=== PATIENT | male | born 1960 | race Caucasian/White ===

== ENCOUNTER 2024-07-06 14:52 | Inpatient (IN) | payer OTHER, SELFPAY ==
[2024-07-06] VITALS (18 sets, daily range): BP systolic 72–137; BP diastolic 50–88; PULSE 90–120; RESP 16–24; TEMP 36.2–37.3; O2SAT 94–99; BMI 24.4; BMI 24.0
--- NOTE | 2024-07-06 15:12 | EKG12_ITS ---
Test Reason : SOB Blood Pressure : */* mmHG Vent. Rate : 125 BPM Atrial Rate : 125 BPM P-R Int : 144 ms QRS Dur : 82 ms QT Int : 352 ms P-R-T Axes : -17 -21 19 degrees QTcB Int : 508 ms Sinus tachycardia Otherwise normal ECG Confirmed by Floyd Lewis ([id number]), purchase request editor DON PEREZ ([id number]) on 07/07/2024 11:31:00 AM Referred By: Jonel Mckeon Confirmed By: Floyd Lewis
--- NOTE | 2024-07-06 15:12 | CT_ITS ---
PROCEDURE: BRAIN/HEAD WITHOUT CONTRAST 07/06/2024 REASON FOR EXAM: FALLS AND HEAD INJURY TECHNIQUE: Head CT without intravenous contrast. Coronal and Sagittal reconstruction series were provided. One or more dose reduction techniques were used (e.g., Automated exposure control, adjustment of the mA and/or kV according to patient size, use of iterative reconstruction technique. RADIATION DOSE SUMMARY: CTDlvol: 44.99 mGy DLP: 863.60 mGycm COMPARISON: None FINDINGS: Brain: No intracranial hemorrhage, mass effect, midline shift. Butler-white matter differentiation maintained without CT findings of acute infarct. No cerebral edema or sulcal effacement. CSF Spaces: Normal Sinuses/Mastoids: Clear at visualized levels Bilateral ocular lens replacements. Bones: Depressed anterior nasal bridge fracture. CT/Brain/Head without Contrast IMPRESSION: No acute abnormal intracranial finding. Depressed anterior nasal bridge fracture. Reading [facility]
--- NOTE | 2024-07-06 15:15 | EX.ED.DYSGE1 ---
HPI History of Present Illness Chief Complaint: Shortness of Breath Informant: patient and family (Sister with the patient.) Onset/Context/Timing Onset: Today Context: Gradual Onset Timing: Continuous Current Severity: Mild Maximum Severity: Mild Narrative Narrative: 64-year-old male history of frequent falls. On the fourth of this month he was at [facility] after a fall with pneumothorax and had a chest tube placed on the left. His sister lives down in this area to get discharged to stay with her until she can get him into a correction facility. He does have a history of alcohol abuse. Prior lymphoma. She states that he has had more shortness of breath he has been dizzy lately. And he fell again yesterday. He denies any injury from the falls. He is not on blood thinners. He denies vomiting diarrhea or fever. He denies chest pain or abdominal pain. Prior similar symptoms: Yes Recent Illness/Hospitalization: Yes PFSH PFSH Allergy/AdvReac Type Severity Reaction Status Date / Time No Known Allergies Allergy Verified 07/06/24 14:56 Social History Smoking Status: Light Smoker (<10/day) ROS ROS ED ROS Narrative Patient denies any injury from the falls. Denies any rib pain denies abdominal pain. Denies any vomiting or diarrhea. No fever. No dysuria. He has had dizziness. Constitutional Constitutional ED: Denies chills or fever(s) Eyes Eyes: Denies blurry vision ENT ENT ED: Denies ear pain Cardiovascular Cardiovascular: Denies chest pain, orthopnea or palpitations Respiratory/Chest Respiratory/Chest: Denies cough, dyspnea, dyspnea on exertion or orthopnea Gastrointestinal Gastrointestinal: Denies abdominal pain Genitourinary Genitourinary ED: Denies dysuria or hematuria Musculoskeletal Musculoskeletal: Denies arthralgias Neurologic Neurologic: Denies headache(s) Psychiatric Psychiatric: Denies anxiety or depression Endocrine Endocrinology: Denies cold intolerance Hematologic/Lymphatic Hematologic/Lymphatic: Reports none Allergic/Immunologic Allergic/Immunologic ED: Denies mouth swelling, tongue swelling or urticaria EXAM Physical Exam Narrative Exam Narrative: Elderly male sitting upright in bed. His initial vital signs as first blood pressure 72/50 currently is 99/62. Afebrile. Pulse ox 96% on room air. No hypoxia. No distress. Tolerating hypertension well. Sisters at bedside. H EENT exam pupils round react light. Extra motions are intact. No hematoma. No laceration. Scalp and face are nontender. Moist mucous membranes. Neck nontender no lymphadenopathy. Back and spine nontender no bruising. Lungs clear to auscultation bilaterally. Heart regular rhythm rate about 115 no murmur. Chest wall ribs currently are nontender. No crepitus or subcu air. Abdomen soft nontender. No peritoneal signs. Patient moving all 4 extremities. Calves are nontender without edema or cords. He has equal symmetrical 5/5 radiator cleaner strength. Dorsi plantarflexion intact. He has normal range of motion both upper and lower extremities. Neurologically is awake alert. Answering questions following commands. Patient has a very benign exam. Const Vital Signs: 07/06/24 14:57 07/06/24 15:03 07/06/24 15:22 Temperature 97.2 F L 99.2 F H Temperature Source Oral Oral Pulse Rate 113 H 120 H 110 H Respiratory Rate 24 H 21 H 24 H Respiratory Effort Respiratory Depth Respiratory Pattern Blood Pressure 72/50 L 96/72 86/57 L Blood Pressure Mean 57 80 66 Pulse Ox 96 95 98 Oxygen Delivery Method Room Air Room Air Room Air 07/06/24 15:27 07/06/24 15:34 07/06/24 15:45 Temperature Temperature Source Pulse Rate 90 Respiratory Rate 24 H Respiratory Effort Short of Breath Short of Breath Respiratory Depth Normal Respiratory Pattern Normal Normal Blood Pressure 81/70 L Blood Pressure Mean 77 Pulse Ox Oxygen Delivery Method 07/06/24 15:46 07/06/24 15:51 07/06/24 16:00 Temperature Temperature Source Pulse Rate 98 90 92 Respiratory Rate 20 H 22 H 21 H Respiratory Effort Respiratory Depth Respiratory Pattern Blood Pressure 86/56 L 98/62 Blood Pressure Mean 67 72 Pulse Ox 97 94 96 Oxygen Delivery Method Room Air Room Air 07/06/24 16:00 07/06/24 16:15 07/06/24 16:30 Temperature Temperature Source Pulse Rate 97 96 Respiratory Rate 20 H 22 H Respiratory Effort Respiratory Depth Respiratory Pattern Blood Pressure 98/62 108/61 110/72 Blood Pressure Mean 72 77 84 Pulse Ox 95 95 Oxygen Delivery Method Room Air 07/06/24 16:45 07/06/24 16:45 07/06/24 17:00 Temperature Temperature Source Pulse Rate 94 94 106 H Respiratory Rate 21 H 21 H 23 H Respiratory Effort Respiratory Depth Respiratory Pattern Blood Pressure 101/67 102/70 Blood Pressure Mean 78 82 Pulse Ox 99 Oxygen Delivery Method Room Air 07/06/24 19:00 07/06/24 20:00 Temperature Temperature Source Pulse Rate 111 H 104 H Respiratory Rate 18 18 Respiratory Effort Respiratory Depth Respiratory Pattern Blood Pressure 101/69 127/72 H Blood Pressure Mean 79 90 Pulse Ox 97 95 Oxygen Delivery Method Room Air Room Air Positive well nourished and well developed; Negative for obese, cachectic, contractures or unkempt General Appearance ED: well developed and NAD; Negative for unkempt, cachectic, contractures, cyanotic, diaphoretic or pallor Nutritional Appearance: Negative for cachectic or obese HEENT Reports moist mucous membranes Negative for trauma or tenderness Eyes PERRL and EOMs intact bilaterally General Eye ED: Negative for pale conjunctiva or scleral icterus Neck no lymphadenopathy, supple and no JVD General: Negative for tenderness Lymph Lymphatic: Negative for other Chest Wall inspection of chest normal and palpation of chest normal Resp normal respiratory effort and clear to auscultation bilaterally Cardio regular rhythm, S1 normal heart sound, S2 normal heart sound and no murmurs; Negative for regular rate Rate: tachycardic Rhythm: Negative for abnormal rhythm GI normal to inspection, nondistended, normoactive bowel sounds, non-tender, non-distended and no masses Palpation: soft; Negative for tender, guarding or rebound tenderness present Back/Spine no CVA tenderness General Back: Negative for CVA tenderness Cervical Spine: Negative for cervical spine tenderness Thoracic Spine / Upper Back: Negative for thoracic spinal tenderness or paraspinal muscle tenderness Lumbar Spine / Lower Back: Negative for lumbar spinal tenderness Extremity normal to inspection General Extremety ED: Negative for edema or tenderness General Extremity: Negative for edema Neuro oriented x3 and CN's II-XII intact bilaterally Sensorium / Orientation: alert; Negative for orientation impaired, lethargic or stuporous Motor Exam: strength 5/5 throughout; Negative for general weakness or strength abnormal Psych mental status grossly normal Appearance: Negative for unkempt Attitude: No agitated Mood & Affect: Negative for depressed, anxious or tearful Skin no rashes or lesions noted and no wounds General Skin Exam: Negative for jaundice or pallor Lesions: No lesion noted Rashes: No rashes noted Trauma: Negative for abrasion Wounds: Negative for wounds noted MDM MDM MDM Narrative Medical decision making narrative: 64-year-old male frequent falls recent rib fractures and pneumothorax. Fell yesterday. Presents today hypotensive but has a very benign exam with no reproducible pain. He will undergo a workup for possible acute injury causing to be hypotensive versus anemia versus dehydration versus other etiologies. Screening labs. Troponin. Chest x-ray. CT of his head due to recent head injury. His abdomen is benign and I do not think it needs imaging at this time. He will be given a liter normal saline. Repeat exam is 7:40 PM. A lengthy discussion with both the patient and his sister. Initially wants to refuse admission. He also does not believe our hospital takes his insurance. He was recently at [facility] For his rib fractures and is pneumothorax. He is willing to go back there if I get them except him in transfer. Currently stable. His blood pressure of 102/70. He is resting comfortably in bed. I did explain to him about his moderate to large left pleural effusion. Due to the length of time possible transfer was taking. Patient changed his mind he became frustrated and wanted to be admitted here. I spoke with our hospitalist will be admitted here for possible drainage of the left pleural effusion. History & Record Review Discussion w/independent historian: Patient and Family Additional record(s) reviewed:: No prior records Lab Data Attestation: I reviewed the patient's lab results. Lab results narrative: CBC shows a white count of 15.5. H&H 9.2 and 28. Platelets 733. Chemistry shows sodium 137. Gap 17. BUN of 14 creatinine 1.05. Troponin is elevated at 26. Glucose 118. Lactic acid 2.1. Liver enzymes show an elevated AST of 225. ALT 106. Alk phos 145. Alcohol level is negative. We have no old labs available comes parison from our facility. I am attempting to get the old ones to compare to see if this anemia is new. We were able to obtain prior labs from an outside facility. This is his baseline anemia. These labs are pretty much his baseline. We do not have any liver enzymes to compare to. Chest x-ray shows old fractured ribs on the right. An effusion on the left. Normal cardiac silhouette. I spoke to the radiologist when he viewed the effusion on the left he did not think it was blood. Did not think it was a hemothorax. UA is negative. CT of the brain shows chronic changes no acute bleed. Labs: Laboratory Results - last 24 hr 07/06/24 07/06/24 07/06/24 15:22 16:45 17:29 WBC 15.5 H RBC 2.68 L Hgb 9.2 L Hct 28.1 L MCV 104.9 H MCH 34.3 H MCHC 32.7 RDW Std Deviation 54.9 H RDW Coeff of Narciso 14.5 Plt Count 733 H MPV 9.9 Immature Gran % (Auto) 0.600 Neut % (Auto) 78.0 H Lymph % (Auto) 9.1 L Reagan % (Auto) 9.5 Eos % (Auto) 2.3 Baso % (Auto) 0.5 Absolute Neuts (auto) 12.1 H Absolute Lymphs (auto) 1.41 Nucleated RBC % 0 Sodium 137 Potassium 3.5 Chloride 99 Carbon Dioxide 20.8 L Anion Gap 17 H BUN 14 Creatinine 1.05 Estim Creat Clear Calc 81.38 Est GFR (MDRD) Non-Af 80 BUN/Creatinine Ratio 13.0 Glucose 118 H Lactic Acid 2.1 H* Calcium 9.6 Total Bilirubin 0.93 AST 225 H ALT 106 H Alkaline Phosphatase 145 H Troponin T High Sens 26 H Total Protein 8.2 Albumin 3.7 Globulin 4.5 H Albumin/Globulin Ratio 0.8 L Urine Color Jazlyn Urine Clarity Clear Urine pH 5.0 Ur Specific [place] 1.020 Urine Protein 100 H Urine Glucose (UA) Normal Urine Ketones Negative Urine Occult Blood Negative Urine Nitrite Negative Urine Bilirubin 1 H Urine Urobilinogen 1 H Ur Leukocyte Esterase 25 H Urine RBC 0 SEEN Urine WBC 0-5 SEEN Ur Squamous Epith Cells 0 SEEN Calcium Oxalate Crystal 1+ Urine Bacteria 0 SEEN Hyaline Casts 25-50 SEEN Fine Granular Casts 0-5 SEEN Urine Mucus 1+ Ethyl Alcohol < 10.1 Blood Type A NEGATIVE Antibody Screen NEGATIVE Radiography Chest X-Ray - ED: 2 View, Read by ED Physician, Normal, Mediastinum, Bony Structures, Chronic Changes, Left Effusion and Left Rib Fx Diagnostic Testing: Clinical Impression(s) from Imaging Studies Brain CT 07/06/24 15:12 IMPRESSION: No acute abnormal intracranial finding. Depressed anterior nasal bridge fracture. Reading Location: [facility] Chest X-Ray 07/06/24 15:35 IMPRESSION: Minimally displaced left 6th and probably 7th rib fractures. Moderate size left pleural effusion with overlying atelectasis/infiltrate. Reading Location: [facility]- Chest CTA 07/06/24 15:57 IMPRESSION: Nondisplaced left 6th through 9th rib fractures. Moderate-sized left pleural effusion with overlying atelectasis. No pulmonary artery filling defect to suggest embolus. Reading Location: [facility] Chest x-ray, 2 views, AP and lateral, interpreted myself. Normal cardiac silhouette. Appears to be an effusion on the left chest. This could be chronic effusion could be hemothorax due to his recent rib fractures. There is old rib fractures on the right. I do not see any pneumothorax. Rhythm Strip Rhythm Strip: Sinus Tach Rate: 125 Ectopy: None EKG Initial EKG: Attestation: I personally reviewed and interpreted this EKG as follows: Interpretation: No Acute Injury Pattern and Sinus Tachycardia Comments: Sinus tachycardia rate of 125 no acute signs of ME or ischemia. No [id number]. Discharge Plan Triage Chief Complaint: Shortness of Breath ED Provider: Galdino Prado Dx/Rx/DC Orders Clinical Impression: Falls, History of fracture of rib, Pleural effusion on left, Acute dyspnea, Chronic anemia Primary Care Provider: YULIANA DE LA CRUZ Referrals: [facility] Doctor,Out of [Non-Staff] - Print Language: Mauritian Disposition Disposition: [facility]
[2024-07-06] MEDS: 0.9% Normal Saline (1000mL) 1,000 ML 1000 ML IV (15:20)
[2024-07-06 15:30] LABS: Absolute Lymphocyte Count 1.41 X10^3/uL (0.83-4.51); Absolute Neutrophil Count 12.1 X10^3/uL (2.0-7.7); Basophil# 0.07 X10^3/uL; Basophil% 0.5 % (0-1); Eosinophil# 0.35 X10^3/uL; Eosinophils% 2.3 % (0-5); Hematocrit 28.1 % (40-54); Hemoglobin 9.2 g/dL (13.0-16.5); Lymphocyte # 1.41 X10^3/ul (0.83-4.51); Lymphocyte % 9.1 % (19-41); Mean Corp Hgb Conc 32.7 g/dL (32-36); Mean Corpuscular Hgb 34.3 pg (27.0-32.0); Mean Corpuscular Volume 104.9 fL (80-94); Mean Platelet Vol. 9.9 fl (6.2-12.0); Monocyte# 1.48 X10^3/uL; Monocyte% 9.5 % (0-10); NRBC Flagged by Analyzer 0 % (0-5); Platelet Count 733 K/mm3 (150-450); RBC Distribution Width CV 14.5 % (11.6-14.6); RBC Distribution Width SD 54.9 fl (35.1-43.9); Red Blood Count 2.68 M/mm3 (4.6-6.2); White Blood Count 15.5 K/mm3 (4.4-11.0)
--- NOTE | 2024-07-06 15:35 | RAD_ITS ---
PROCEDURE: CHEST PA AND LATERAL 07/06/2024 REASON FOR EXAM: FALLS AND PRIOR RIB FXS AND PNEUMOTHORAX TECHNIQUE: Frontal and lateral views of the chest. COMPARISON: Same day chest CT FINDINGS: Heart: The heart size is normal. Mediastinum: The mediastinal contour is unremarkable. Lungs: Moderate-sized left pleural effusion with loculated component and overlying atelectasis/infiltrate redemonstrated. The right lung appears clear. Bones: Minimally displaced left and old right rib fractures redemonstrated. RAD/Chest PA and Lateral IMPRESSION: Minimally displaced left 6th and probably 7th rib fractures. Moderate size left pleural effusion with overlying atelectasis/infiltrate. Reading Location: [facility]
[2024-07-06 15:57] LABS: Alcohol, Blood (Medical)-Serum < 10.1 mg/dL (<=10.0)
--- NOTE | 2024-07-06 15:57 | CT_ITS ---
PROCEDURE: CTA CHEST W/WO CONTRAST 07/06/2024 REASON FOR EXAM: HYPOTENSION AND LEFT PL EFFUSION VS HEMOTHORAX. TECHNIQUE: CTA axial imaging of the chest with intravenous contrast. Coronal and Sagittal reconstruction series were provided. Maximum intensity projection (MIPs) provided. PATIENT PREPARATION: Per protocol CONTRAST: Isovue 370 VOLUME: 80 mL One or more dose reduction techniques were used (e.g., Automated exposure control, adjustment of the mA and/or kV according to patient size, use of iterative reconstruction technique). RADIATION DOSE SUMMARY: DLP: 499.10 mGycm COMPARISON: Concurrent chest x-ray FINDINGS: Lymph nodes: No mediastinal, hilar, or axillary lymphadenopathy. Heart: Normal heart size. RV/LV Diameter Ratio: Subjectively normal Thoracic Aorta: No thoracic aortic aneurysm or dissection. Pulmonary Vessels: No evidence of acute pulmonary emboli through the major subsegmental branches. Lungs and Airways: Moderate size fluid density left pleural effusion insinuates in the lateral aspect of the major fissure. Overlying atelectasis. Scattered ground-glass densities in both lungs likely represent chronic disease. Pleura: No definite pneumothorax. Upper Abdomen: Small liver cysts. Bones: Nondisplaced lateral left 6th through 9th rib fractures. Old 7th through 9th and 12th right rib fractures. CT/CTA Chest W/WO Contrast IMPRESSION: Nondisplaced left 6th through 9th rib fractures. Moderate-sized left pleural effusion with overlying atelectasis. No pulmonary artery filling defect to suggest embolus. Reading [facility]
[2024-07-06 15:58] LABS: Troponin T High Sensitivity 26 ng/L (<=22)
[2024-07-06 16:00] LABS: Lactic Acid 2.1 mmol/L (0.0-2.0)
[2024-07-06 16:17] LABS: ALB/GLOB Ratio 0.8 RATIO (0.9-2.4); AST(SGOT) 225 U/L (<=37); Alanine Aminotransfer ALT/SGPT 106 U/L (<=46); Albumin, Serum 3.7 g/dL (3.4-4.8); Alkaline Phosphatase 145 U/L (40-129); Anion Gap 17 (5-15); BUN 14 mg/dL (4-19); Calcium,Total 9.6 mg/dL (7.6-11.0); Carbon Dioxide 20.8 mmol/L (21.0-32.0); Chloride 99 mmol/L (98-108); Creatinine, Serum 1.05 mg/dL (0.70-1.20); EST Glomerular Filtration Rate 80 (>60); Estimated Creatinine Clearance 81.38 ml/min (50-250); Globulin 4.5 g/dL (2.2-4.2); Glucose 118 mg/dL (70-99); Potassium 3.5 mmol/L (3.3-5.1); Protein, Total 8.2 g/dL (5.9-8.4); Sodium Level 137 mmol/L (133-145); Total Bilirubin 0.93 mg/dL (0.00-1.30)
[2024-07-06 17:36] LABS: Bacteria 0 SEEN /hpf (None Seen); Red Blood Cells-Urine 0 SEEN /hpf (0-5); Squamous Epithelial Cells - UA 0 SEEN /hpf (0-5)
[2024-07-06 17:54] LABS: Color, Urine Amber (Yellow); Glucose, Dipstick Normal (Normal); Ketone-Dipstick Negative (Negative); Leukocyte Esterase-Dipstick 25 /ul (Negative); Nitrite-Dipstick Negative (Negative); Occult Blood-Urine Negative /ul (Negative); Protein-Dipstick 100 mg/dl (Negative); Urine Clarity Clear (Clear); Urine Urobilinogen 1 mg/dl (Normal)
[2024-07-06 18:04] LABS: Urine Bilirubin Dipstick 1 mg/dL (Negative)
[2024-07-06 18:11] LABS: Mucous, Urine 1+ /hpf (<or=2+); White Blood Cells 0-5 SEEN /hpf (0-5)
[2024-07-06 18:12] LABS: Calcium Oxalate Crystals Ur 1+ /hpf (<or=2+); Hyaline Cast 25-50 SEEN /lpf (0-5)
[2024-07-06 18:13] LABS: Fine Granular Cast- Urine 0-5 SEEN /lpf (0-5)
[2024-07-06 19:26] LABS: Reflex Lactate? Y
--- NOTE | 2024-07-06 19:48 | ED.RN ---
This RN went into the patient's room to obtain vital signs and the patient was agitated and had torn out his own IV. This RN educated the patient on the importance of allowing staff to remove the IV upon discharge. The patient stated I don't care, I have been here way too long and [facility]. This RN apologized for the long wait and educated the patient. notified.
--- NOTE | 2024-07-06 21:08 | PCM.HP.STD ---
[facility] - [facility] General Date of Admission: 07/06/24 Date of Service: 07/06/24 Chief Complaint: SOB. [facility] Narrative BLAISE CYR, is a 64 M with a past medical history of essential hypertension; on losartan, history of lymphoma, history of CISD, chronic tobacco abuse, chronic EtOH Abuse, seasonal allergies; fexofenadine, depression; on escitalopram, BPH; on tamsulosin, frequent fall with near syncope and occasional syncope with history of recent fall with multiple Left rib fractures causing pneumothorax requiring chest tube placement at [facility] on June 26, 2024 with patient apparently discharged on oral vancomycin; for Clostridium difficile Colitis after he developed diarrhea during his last 4 days of admission who now presents to [facility] ER complaining of shortness of breath. Mr. Cyr reports his symptoms began approximately 1 day prior to admission after he fell again yesterday while staying with his sister. She informed the ER physician that he has been more short of breath with minimal activity and has been dizzy lately. There was no report of any significant injury from his falls. He is not on antiplatelet agents or anticoagulation at this time. There is no reported fever, chills, nausea, vomiting, diarrhea, constipation, abdominal pain, chest pain, headache or rash. In the ER he was noted to have Leukocytosis of 15.5 K with Lactic Acidosis of 2.1 mmol/L present on admission with severe hypotension of 72/50 mmHg present on admission concerning for possible Sepsis of unknown origin with CTA of chest with and without IV contrast revealing nondisplaced Left 6th through 9th rib fractures with moderate-sized left pleural effusion with overlying atelectasis and no pulmonary artery filling defect to suggest embolus he also underwent brain CT without contrast there revealed no acute abnormal intracranial finding with depressed anterior nasal bridge fracture. His UA in the ER was positive for evidence of colonization without acute infection in addition to mild transaminitis: with AST; 225 units/L, ALT 106 units/L and alkaline phosphatase 145 U/L and she was then admitted to the PCU for ongoing care for a stay that is expected to extend beyond 2 midnights. PFSH Home Medications ?Medication ?Instructions ?Recorded ?Last Taken ?Type acetaminophen 325 mg capsule 975 mg PO Q6H PRN fever or pain 07/06/24 Unknown History escitalopram oxalate 20 mg tablet 20 mg PO DAILY 07/06/24 Unknown History fexofenadine 60 mg tablet 60 mg PO DAILY 07/06/24 Unknown History losartan 50 mg tablet 50 mg PO DAILY 07/06/24 Unknown History oxycodone 5 mg tablet 5 mg PO DAILY 07/06/24 Unknown History tamsulosin 0.4 mg capsule 0.4 mg PO QHS 07/06/24 Unknown History vancomycin 125 mg capsule 125 mg PO Q6H 07/06/24 Unknown History Allergy/AdvReac Type Severity Reaction Status Date / Time No Known Allergies Allergy Verified 07/06/24 14:56 Social History Smoking Status: Light Smoker (<10/day) ROS ROS Narrative Review of Systems: Constitutional: Patient denies fever or chills. Eyes: Patient denies changes in vision or discharge from eyes. ENT: Patient denies runny nose, sore throat or ear pain. Resp: Patient denies shortness of breath or cough. CV: Patient denies chest pain, palpitations, heart racing or lower extremity edema. GI: Patient denies abdominal pain, nausea, vomiting, diarrhea or constipation. : Patient denies dysuria, hematuria or urinary frequency. MSK: Patient denies arthralgias or myalgias. Skin: Patient denies rash, abscess, wounds or jaundice. Psych: Patient denies symptoms well-controlled depression or anxiety. Neuro: Patient denies headache, paresthesias or focal neurologic deficits. Allergy: Patient denies lip swelling, tongue swelling or urticaria. Hematology: Patient denies easy bleeding or easy bruisability. Endocrinology: Patient denies polyuria, polydipsia, polyphagia or heat/cold intolerance. 14 point ROS otherwise negative except for positives noted above in HPI. Vital Signs Vital Signs Vital Signs: 07/06/24 14:57 07/06/24 15:03 07/06/24 15:22 Temperature 97.2 F L 99.2 F H Temperature Source Oral Oral Pulse Rate 113 H 120 H 110 H Respiratory Rate 24 H 21 H 24 H Respiratory Effort Respiratory Depth Respiratory Pattern Blood Pressure 72/50 L 96/72 86/57 L Blood Pressure Mean 57 80 66 Pulse Ox 96 95 98 Oxygen Delivery Method Room Air Room Air Room Air 07/06/24 15:27 07/06/24 15:34 07/06/24 15:45 Temperature Temperature Source Pulse Rate 90 Respiratory Rate 24 H Respiratory Effort Short of Breath Short of Breath Respiratory Depth Normal Respiratory Pattern Normal Normal Blood Pressure 81/70 L Blood Pressure Mean 77 Pulse Ox Oxygen Delivery Method 07/06/24 15:46 07/06/24 15:51 07/06/24 16:00 Temperature Temperature Source Pulse Rate 98 90 92 Respiratory Rate 20 H 22 H 21 H Respiratory Effort Respiratory Depth Respiratory Pattern Blood Pressure 86/56 L 98/62 Blood Pressure Mean 67 72 Pulse Ox 97 94 96 Oxygen Delivery Method Room Air Room Air 07/06/24 16:00 07/06/24 16:15 07/06/24 16:30 Temperature Temperature Source Pulse Rate 97 96 Respiratory Rate 20 H 22 H Respiratory Effort Respiratory Depth Respiratory Pattern Blood Pressure 98/62 108/61 110/72 Blood Pressure Mean 72 77 84 Pulse Ox 95 95 Oxygen Delivery Method Room Air 07/06/24 16:45 07/06/24 16:45 07/06/24 17:00 Temperature Temperature Source Pulse Rate 94 94 106 H Respiratory Rate 21 H 21 H 23 H Respiratory Effort Respiratory Depth Respiratory Pattern Blood Pressure 101/67 102/70 Blood Pressure Mean 78 82 Pulse Ox 99 Oxygen Delivery Method Room Air 07/06/24 19:00 07/06/24 20:00 Temperature Temperature Source Pulse Rate 111 H 104 H Respiratory Rate 18 18 Respiratory Effort Respiratory Depth Respiratory Pattern Blood Pressure 101/69 127/72 H Blood Pressure Mean 79 90 Pulse Ox 97 95 Oxygen Delivery Method Room Air Room Air Weight Weight: 185 lb 6.54 oz Body Mass Index (BMI) 24.4 Physical Exam Const alert, oriented x3, no apparent distress and average body habitus General Appearance: cooperative HEENT normocephalic, head/scalp atraumatic and hearing grossly normal bilaterally Eyes PERRL and EOMs intact bilaterally Neck no lymphadenopathy and supple Resp normal respiratory effort, no retractions, no use of accessory muscles and clear to auscultation bilaterally Cardio regular rate and regular rhythm GI normal to inspection, nondistended, normoactive bowel sounds, soft to palpation, non-tender and non-distended Extremity normal to inspection and full ROM Skin Skin Narrative: Patient has evidence of rash, abscess, wounds or jaundice. Neuro oriented x3, CN's II-XII intact bilaterally, moves all extremities and no focal motor deficits Sensorium / Orientation: awake, alert, oriented to person, oriented to place and oriented to time Speech: speech normal Psych affect normal Results Medical Records Data Attestation: I reviewed the patient's medical records Lab / Micro Data Attestation: I reviewed the patient's lab results. 07/06/24 15:22 07/06/24 15:22 Labs: Laboratory Results - last 24 hr 07/06/24 15:22: WBC 15.5 H, RBC 2.68 L, Hgb 9.2 L, Hct 28.1 L, MCV 104.9 H, MCH 34.3 H, MCHC 32.7, RDW Std Deviation 54.9 H, RDW Coeff of Narciso 14.5, Plt Count 733 H, MPV 9.9, Immature Gran % (Auto) 0.600, Neut % (Auto) 78.0 H, Lymph % (Auto) 9.1 L, Brooke % (Auto) 9.5, Eos % (Auto) 2.3, Baso % (Auto) 0.5, Absolute Neuts (auto) 12.1 H, Absolute Lymphs (auto) 1.41, Nucleated RBC % 0, Sodium 137, Potassium 3.5, Chloride 99, Carbon Dioxide 20.8 L, Anion Gap 17 H, BUN 14, Creatinine 1.05, Estim Creat Clear Calc 81.38, Est GFR (MDRD) Non-Af 80, BUN/Creatinine Ratio 13.0, Glucose 118 H, Lactic Acid 2.1 H*, Calcium 9.6, Total Bilirubin 0.93, AST 225 H, ALT 106 H, Alkaline Phosphatase 145 H, Troponin T High Sens 26 H, Total Protein 8.2, Albumin 3.7, Globulin 4.5 H, Albumin/Globulin Ratio 0.8 L, Ethyl Alcohol < 10.1 07/06/24 16:45: Blood Type A NEGATIVE, Antibody Screen NEGATIVE 07/06/24 17:29: Urine Color Jazlyn, Urine Clarity Clear, Urine pH 5.0, Ur Specific Spencer 1.020, Urine Protein 100 H, Urine Glucose (UA) Normal, Urine Ketones Negative, Urine Occult Blood Negative, Urine Nitrite Negative, Urine Bilirubin 1 H, Urine Urobilinogen 1 H, Ur Leukocyte Esterase 25 H, Urine RBC 0 SEEN, Urine WBC 0-5 SEEN, Ur Squamous Epith Cells 0 SEEN, Calcium Oxalate Crystal 1+, Urine Bacteria 0 SEEN, Hyaline Casts 25-50 SEEN, Fine Granular Casts 0-5 SEEN, Urine Mucus 1+ Rhythm Strip Rhythm Strip: Sinus Tach Rate: 125 Ectopy: None Imaging Radiology Impression Brain CT 07/06/24 15:12 IMPRESSION: No acute abnormal intracranial finding. Depressed anterior nasal bridge fracture. Reading Location: [facility] Chest X-Ray 07/06/24 15:35 IMPRESSION: Minimally displaced left 6th and probably 7th rib fractures. Moderate size left pleural effusion with overlying atelectasis/infiltrate. Reading Location: [facility] Chest CTA 07/06/24 15:57 IMPRESSION: Nondisplaced left 6th through 9th rib fractures. Moderate-sized left pleural effusion with overlying atelectasis. No pulmonary artery filling defect to suggest embolus. Reading Location: [facility] Imaging Services [address] [place] [address] [id number] Abdomen/Pelvis without Cont MR#: [id number] Acct: [id number] Name: BLAISE CYR Rep #: [id number] : 1960 M 64 From: Adrien Dalal MD PCP: YULIANA DE LA CRUZ Status: ADM IN Study: Abdomen/Pelvis without Cont Date of Exam: 07/06/24 Exam# [id number] Ordering Dr: Jonel Mckeon DO PROCEDURE: ABDOMEN/PELVIS WITHOUT CONT 07/07/2024 REASON FOR EXAM: TRANSAMINITIS. TECHNIQUE: Abdomen and pelvis CT without intravenous contrast. Noncontrast technique limits evaluation of the abdominal and pelvic viscera. Coronal and Sagittal reconstruction series were provided. One or more dose reduction techniques were used (e.g., Automated exposure control, adjustment of the mA and/or kV according to patient size, use of iterative reconstruction technique). PATIENT PREPARATION: Per protocol ORAL CONTRAST TYPE: None. AMOUNT: mL COMPARISON: CT scan of the chest on 07/06/2024. FINDINGS: Moderate left pleural effusion. Passive atelectatic airspace disease in the left lower lobe. Mildly displaced acute fractures of the left seventh, eighth and ninth ribs, unchanged. Hepatomegaly measuring 23 cm. Hepatic steatosis. Mild diffuse irregularity of the hepatic contour, probably chronic parenchymal liver disease. Scattered simple cysts with the largest in the segment 4 measuring 2.3 cm. No follow-up is needed. Mild prostatomegaly. Scattered prostatic calcifications. Mild osteopenia. Mild diffuse spondylosis. Normal gallbladder and extrahepatic biliary system. Normal unenhanced spleen. Normal pancreas. Normal bilateral adrenal glands. Normal size of the right kidney. There is no right renal mass. There are no right renal calculi. There is no right hydronephrosis. Normal visualized right ureter. Normal size of the left kidney. There is no left renal mass. There are no left renal calculi. There is no left hydronephrosis. Normal visualized left ureter. Normal visualized stomach. Normal small intestine. Normal colon. The appendix is visualized and appears normal. There is no demonstrated peritoneal fluid. Mild atheromatous plaques of the abdominal aorta. Normal inferior vena cava. Normal retroperitoneum. There is no pelvic mass lesion or lymphadenopathy. There is no pelvic fluid. Normal abdominal wall. CT/Abdomen/Pelvis without Cont IMPRESSION: 1. Moderate left pleural effusion. 2. Passive atelectatic airspace disease in the left lower lobe, unchanged. 3. Mildly displaced acute fractures of the left seventh, eighth and ninth ribs, unchanged. 4. Hepatomegaly measuring 23 cm. 5. Hepatic steatosis. 6. Mild diffuse irregularity of the hepatic contour, probably chronic parenchymal liver disease. 7. Scattered simple cysts with the largest in the segment 4 measuring 2.3 cm. No follow-up is needed. 8. Mild prostatomegaly. 9. Scattered prostatic calcifications. 10. Mild osteopenia. 11. Mild diffuse spondylosis. [facility] CC: Dr. Jonel Mckeon, DO; YULIANA DE LA CRUZ ~ Orthodontic Treatment Coordinator: Signed Assessment & Plan Assessment/Plan (1) Sepsis: QUALIFIERS: Sepsis acute organ dysfunction status: without acute organ dysfunction Sepsis type: sepsis due to unspecified organism Qualified Code(s): A41.9 - Sepsis, unspecified organism (2) Leukocytosis: QUALIFIERS: Leukocytosis type: unspecified Qualified Code(s): D72.829 - Elevated white blood cell count, unspecified (3) Lactic acidosis: (4) Hypotension: QUALIFIERS: Hypotension type: unspecified hypotension type Qualified Code(s): I95.9 - Hypotension, unspecified (5) History of Clostridioides difficile colitis: (6) Transaminitis: (7) Chronic alcohol abuse: (8) Pleural effusion on left: (9) History of fracture of rib: (10) Tobacco abuse: (11) Frequent falls: (12) Near syncope: PLAN: Plan 1. Leukocytosis of 15.5 K with Lactic Acidosis of 2.1 mmol/L present on admission with severe hypotension of 72/50 mmHg present on admission concerning for possible Sepsis; with patient already on oral Vancocin for recently diagnosed C. difficile colitis during the last 4 days of his stay at [facility] - Admit to PCU under Sepsis protocol. Start empiric antibiotics with IV metronidazole and continue oral vancomycin after recent hospital admission and await culture and sensitivity data. Start probiotics. Serialize lactate. Give ketorolac IV as needed for [id number]-ca-sjulgbue (level 1-5/10) pain or fever. Continue oxycodone as needed for severe (level 6-10/10) pain. 2. Mild transaminitis: with AST; 225 units/L, ALT 106 units/L and alkaline phosphatase 145 U/L complicating #[address] of the abdomen/pelvis pending at this time in the setting of Chronic EtOH Abuse - Check CMP daily to follow trend. Check CT abdomen/pelvis to evaluate for potential underlying pathology. Check ÁNGEL. Start phenobarbital taper to prevent potential withdrawal. 3. Recent fall with multiple Left rib fractures causing pneumothorax requiring chest tube placement at [facility] on June 26, [address] of the chest this admission showing nondisplaced Left 6th through 9th rib fractures with moderate-sized Left pleural effusion with overlying atelectasis and no pulmonary artery filling defect to suggest embolus in addition to CT head this admission that revealed no acute abnormal intracranial finding with depressed anterior nasal bridge fracture compounding #1 & #2 - We will consult interventional radiology for consideration regarding ultrasound-guided thoracentesis will help appreciated in advance. Check echocardiogram to evaluate LVEF. 4. Chronic Tobacco Abuse adding to the medical complexity of #1 - #3 - Tobacco Cessation will be strongly encouraged with Nicotine patch after control cravings 5. History of frequent falls with near syncope and occasional syncope adding to the burden of disease outlined from #1 - #4 - PT/OT and Case Management to consult and treat on rounds in the AM with help appreciated in advance. 6. Essential hypertension; on losartan - Hold scheduled antihypertensives in light of hypotension outlined in #1. 7. History of lymphoma - Noted; with elevated WBC and #1 possibly attributable to this issue. 8. Seasonal allergies; on fexofenadine - Continue current regimen. 9. Depression; on escitalopram - Resume escitalopram as before. 10. BPH; on tamsulosin - Maintain present therapy. 11. History of CISD - Noted. 12. DVT prophylaxis - SCD's only in light of possible thoracentesis as outlined in #3. Total time: Approximately (but not less than) 75 minutes. Sepsis Attestation Sepsis Alert: Yes Sepsis Attestation: Sepsis Ruled Out Date exam was performed: 07/06/24 Time exam was performed: 23:00 Possible Source of Sepsis: Pulmonary Sepsis Organ Dysfunction Criteria Present: SBP < 90 mmHg or MAP < 65 mmHg and Lactic Acid > 2 mmol/L Fluid Resuscitation Fluid resuscitation indicated?: Yes Fluid Resuscitation ordered: 30 ml/kg fluid bolus ordered Amount of fluid ordered: 2 Sepsis Note Date exam was performed: 07/07/24 Time exam was performed: 03:00 Sepsis Attestation: Sepsis re-evaluation was performed Response to fluids: Fluid responsive hypotension Charges/Coding Visit Charges Inpatient E&M: 95609 Init Hosp L3
--- NOTE | 2024-07-06 23:29 | CT_ITS ---
PROCEDURE: ABDOMEN/PELVIS WITHOUT CONT 07/07/2024 REASON FOR EXAM: TRANSAMINITIS. TECHNIQUE: Abdomen and pelvis CT without intravenous contrast. Noncontrast technique limits evaluation of the abdominal and pelvic viscera. Coronal and Sagittal reconstruction series were provided. One or more dose reduction techniques were used (e.g., Automated exposure control, adjustment of the mA and/or kV according to patient size, use of iterative reconstruction technique). PATIENT PREPARATION: Per protocol ORAL CONTRAST TYPE: None. AMOUNT: mL COMPARISON: CT scan of the chest on 07/06/2024. FINDINGS: Moderate left pleural effusion. Passive atelectatic airspace disease in the left lower lobe. Mildly displaced acute fractures of the left seventh, eighth and ninth ribs, unchanged. Hepatomegaly measuring 23 cm. Hepatic steatosis. Mild diffuse irregularity of the hepatic contour, probably chronic parenchymal liver disease. Scattered simple cysts with the largest in the segment 4 measuring 2.3 cm. No follow-up is needed. Mild prostatomegaly. Scattered prostatic calcifications. Mild osteopenia. Mild diffuse spondylosis. Normal gallbladder and extrahepatic biliary system. Normal unenhanced spleen. Normal pancreas. Normal bilateral adrenal glands. Normal size of the right kidney. There is no right renal mass. There are no right renal calculi. There is no right hydronephrosis. Normal visualized right ureter. Normal size of the left kidney. There is no left renal mass. There are no left renal calculi. There is no left hydronephrosis. Normal visualized left ureter. Normal visualized stomach. Normal small intestine. Normal colon. The appendix is visualized and appears normal. There is no demonstrated peritoneal fluid. Mild atheromatous plaques of the abdominal aorta. Normal inferior vena cava. Normal retroperitoneum. There is no pelvic mass lesion or lymphadenopathy. There is no pelvic fluid. Normal abdominal wall. CT/Abdomen/Pelvis without Cont IMPRESSION: 1. Moderate left pleural effusion. 2. Passive atelectatic airspace disease in the left lower lobe, unchanged. 3. Mildly displaced acute fractures of the left seventh, eighth and ninth ribs, unchanged. 4. Hepatomegaly measuring 23 cm. 5. Hepatic steatosis. 6. Mild diffuse irregularity of the hepatic contour, probably chronic parenchym al liver disease. 7. Scattered simple cysts with the largest in the segment 4 measuring 2.3 cm. No follow-up is needed. 8. Mild prostatomegaly. 9. Scattered prostatic calcifications. 10. Mild osteopenia. 11. Mild diffuse spondylosis. Reading [facility]
--- NOTE | 2024-07-06 23:54 | ECHOD_ITS ---
Reason For Study Reason For Study: Syncope Procedure This was a 2D Doppler, Color Flow transthoracic echocardiogram. Exam performed portable in patient room. Left Ventricle Normal LV size. Left ventricular systolic function is normal. The left ventricular ejection fraction is 60 %. Stage 1 diastolic dysfunction. No regional wall motion abnormalities noted. Right Ventricle Normal RV size. Normal systolic function. Atria Normal left atrium. Normal right atrium. Mitral Valve Normal mitral valve. Tricuspid Valve Normal tricuspid valve. Mild to moderate (1-2+) tricuspid valve insufficiency. Pulmonary artery systolic pressure is 54 mmHg. Aortic Valve Trisinus/trileaflet aortic valve. Pulmonic Valve Normal pulmonic valve. Great Vessels Normal aortic root. The pulmonary artery is normal size. Normal inferior vena cava. Pericardium/Pleural No pericardial effusion. Small left pleural effusion. MMode/2D Measurements & Calculations LVIDd: 4.7 cm IVSd: 0.97 cm Ao root diam: 3.2 cm LVIDs: 2.6 cm LVPWd: 1.0 cm RVDd: 4.3 cm FS: 44.9 % LAV(MOD-bp): 31.6 ml LVAd ap4: 27.0 cm2 SV(MOD-sp4): 47.8 ml LAV(MOD-bp) Indexed: 15.3 ml/m2 LVLd ap4: 7.9 cm SI(MOD-sp4): 23.1 ml/m2 LAV(MOD-sp2): 32.1 ml EDV(MOD-sp4): 77.5 ml LAV(MOD-sp4): 22.4 ml EDV(sp4-el): 78.2 ml LVAs ap4: 15.0 cm2 LVLs ap4: 6.6 cm ESV(MOD-sp4): 29.7 ml ESV(sp4-el): 29.1 ml EF(MOD-sp4): 61.7 % EF(sp4-el): 62.8 % SV(sp4-el): 49.1 ml LA A4 area: 12.0 cm2 LA dimension(2D): 2.9 cm RA A4 area: 12.1 cm2 TAPSE: 2.0 cm Time Measurements MV dec time: 0.17 sec Doppler Measurements & Calculations MV E max alberto: 61.7 cm/sec Lat Peak E' Alberto: 12.6 cm/sec Med Peak E' Alberto: 12.6 cm/sec MV A max alberto: 105.2 cm/sec E/E' lat: 4.9 E/E' med: 4.9 MV E/A: 0.59 Ao V2 max: 157.6 cm/sec LV V1 max: 137.0 cm/sec MV dec slope: 364.1 cm/sec2 Ao max P.9 mmHg LV V1 max P.5 mmHg Ao V2 mean: 112.0 cm/sec Ao mean P.6 mmHg Ao V2 VTI: 28.0 cm PA V2 max: 80.5 cm/sec TR max alberto: 349.4 cm/sec TR max P.8 mmHg ECHO/Echo Complete Interpretation Summary Normal LV size. Left ventricular systolic function is normal. The left ventricular ejection fraction is 60 %. Stage 1 diastolic dysfunction. Pulmonary artery systolic pressure is 54 mmHg. Ordering Physician: Jonel Mckeon Referring Physician: Jonel Mckeon Performed By: Mayra Freeman, MARIANNA, RVT
[2024-07-06 23:59] LABS: International Normalized Ratio 1.1; Prothrombin Time (Protime)PT. 13.9 SECONDS (11.7-14.9)
[2024-07-07] VITALS (15 sets, daily range): BP systolic 133–152; BP diastolic 78–99; PULSE 86–101; RESP 16–20; TEMP 37.1–37.2; O2SAT 94–97
--- NOTE | 2024-07-07 | FLU_PTH ---
PATIENT: BLAISE JAFFE LOC: [facility]3 U#:[id number] AGE/SX: 64/M [place] [facility] [place]/06/[address]: Dr. Mamie Mathews MD : 1960 BED: 1 DIS: 07/09/2024 SPEC #: [id number] RECD: 07/07/24 14:15 STATUS: LAURIE RELanny #: [id number] YEISON: 07/07/24 00:[address]: Mamie Mathews DEPT: CYTOLOGY RECD BY: Jasmeet Tavarez ENTERED: 07/08/24 07:07 SP TYPE: Fluid OTHR DR: Dr. Jonel Mckeon, DO Tissues: A - THORACIC FLUID Procedures: Special Stain Group II Surgery Specimen Level IV Cytospin Fluid HEADER OPERATION: Ultrasound guided thoracentesis PRE-OP DIAGNOSIS: Pleural effusion TISSUE SUBMITTED: A- Thoracentesis fluid for cytology DIAGNOSIS CYTOLOGY A. Pleural fluid: * No malignant cells are identified A. CYTOLOGY STUDY Slides are reviewed. CYTOLOGY GROSS A. Received is 70 ml of hazy-yellow fluid labeled with the patient's name and and designated per the requisition as Thoracentesis fluid. Submitted for cytology and cell block preparation. 07/08/2024 CPT: 66432
[2024-07-07] MEDS: 0.9% Normal Saline (1000mL) 1,000 ML 999 ML IV ×2 (00:11→00:38)
[2024-07-07 00:38] LABS: Lactic Acid 1.2 mmol/L (0.0-2.0)
[2024-07-07] MEDS: Gabapentin 300 MG Capsule PO (00:38)
[2024-07-07] MEDS: Vancomycin 125 MG/5 ML Susp PO.SYRINGE PO ×4 (00:38→17:38)
[2024-07-07] MEDS: Phenobarbital 32.4 MG Tablet 64.8 MG PO ×6 (00:38→20:23)
[2024-07-07 01:37] LABS: Troponin T High Sensitivity 20 ng/L (<=22)
[2024-07-07] MEDS: metroNIDAZOLE 500 MG/100 ML BAG 100 MG IV ×3 (01:55→14:25)
[2024-07-07 02:27] LABS: Troponin T High Sens 2 HR 20 ng/L (<=22)
[2024-07-07 03:13] LABS: Amphetamine Urine NEGATIVE (<1000 ng/mL); Barbiturate Urine PRESUMPTIVE POSITIVE (< 200 ng/mL); Benzodiazepine Urine NEGATIVE (< 200 ng/mL); Buprenorphine Urine NEGATIVE (< 200 ng/mL); Cocaine Urine NEGATIVE (< 300 ng/mL); Fentanyl, Urine NEGATIVE; Methadone Urine NEGATIVE (< 300 ng/mL); Opiates Urine NEGATIVE (< 300 ng/mL); Oxycodone, Urine PRESUMPTIVE POSITIVE (< 100 ng/mL); PCP Urine NEGATIVE (< 25 ng/mL); THC Urine NEGATIVE (< 50 ng/mL)
[2024-07-07 03:31] LABS: Magnesium 1.7 mg/dL (1.5-2.2); Vitamin B12 1262 pg/mL (180-914)
--- NOTE | 2024-07-07 05:50 | RAD_ITS ---
PROCEDURE: CHEST 1 VIEW (PORTABLE) 07/07/2024 REASON FOR EXAM: MODERATE LEFT PLEURAL EFFUSION. TECHNIQUE: Frontal view of the chest. COMPARISON: 07/06/2024 FINDINGS: No significant interval change in moderate size left pleural effusion and fluid tracking at the lower major fissure with associated left lung partial passive atelectasis. Left-sided rib fractures again noted. No pneumothorax identified. The right lung appears clear. Old right-sided rib fractures again noted. RAD/Chest 1 View (Portable) IMPRESSION: No significant interval change as above. Reading Location: [id number]
[2024-07-07 06:16] LABS: Hemoglobin A1c 4.6 % (<=5.6)
[2024-07-07 06:37] LABS: Troponin T High Sens 4 HR 23 ng/L (<=22)
[2024-07-07] MEDS: 0.9% Normal Saline (100mL Bag) 100 ML 15 ML IV ×2 (06:49→15:43)
[2024-07-07 06:57] LABS: Cholesterol 133 mg/dL (<=200); High Density Lipoprotein 27 mg/dL; Low Density Lipoprotein Calc. 83 mg/dL; Pro- Brain NATRIURETIC PEPTIDE 182 pg/mL (<=900); Triglycerides 114 mg/dL; Very Low Density Lipoprotein 23 mg/dL (5-40); cholesterol:hdl ratio screen 4.94
[2024-07-07] MEDS: Lactobacillis Acidophilus 1 CAP PO ×4 (08:05→21:48)
[2024-07-07] MEDS: Folic Acid 1 MG Tablet PO (08:05)
[2024-07-07] MEDS: Thiamine Hydrochloride 100 MG Tablet PO (08:05)
[2024-07-07] MEDS: Loratadine 10 MG Tablet 5 MG PO (08:05)
[2024-07-07] MEDS: Escitalopram Oxalate 20 MG Tablet PO (08:06)
[2024-07-07 08:26] LABS: Absolute Lymphocyte Count 1.36 X10^3/uL (0.83-4.51); Absolute Neutrophil Count 7.8 X10^3/uL (2.0-7.7); Basophil% 0.9 % (0-1); Eosinophil# 0.43 X10^3/uL; Eosinophils% 3.9 % (0-5); Hematocrit 22.5 % (40-54); Hemoglobin 7.5 g/dL (13.0-16.5); Lymphocyte # 1.36 X10^3/ul (0.83-4.51); Lymphocyte % 12.5 % (19-41); Mean Corp Hgb Conc 33.3 g/dL (32-36); Mean Corpuscular Hgb 34.4 pg (27.0-32.0); Mean Corpuscular Volume 103.2 fL (80-94); Mean Platelet Vol. 10.3 fl (6.2-12.0); Monocyte# 1.16 X10^3/uL; Monocyte% 10.6 % (0-10); NRBC Flagged by Analyzer 0 % (0-5); Neutrophil # 7.78 X10^3/uL (2.7-7.7); Neutrophil % 71.5 % (47-70); Platelet Count 613 K/mm3 (150-450); RBC Distribution Width CV 14.4 % (11.6-14.6); RBC Distribution Width SD 53.4 fl (35.1-43.9); Red Blood Count 2.18 M/mm3 (4.6-6.2); White Blood Count 10.9 K/mm3 (4.4-11.0)
[2024-07-07 08:47] LABS: Anion Gap 13 (5-15); BUN 7 mg/dL (4-19); BUN/Creat Ratio 11.6 RATIO (10-20); Calcium,Total 8.3 mg/dL (7.6-11.0); Carbon Dioxide 18.6 mmol/L (21.0-32.0); Chloride 105 mmol/L (98-108); Creatinine, Serum 0.63 mg/dL (0.70-1.20); EST Glomerular Filtration Rate 107 (>60); Estimated Creatinine Clearance 135.63 ml/min (50-250); Glucose 101 mg/dL (70-99); Potassium 3.4 mmol/L (3.3-5.1); Sodium Level 136 mmol/L (133-145)
[2024-07-07] MEDS: oxyCODONE 5 MG Tablet PO ×2 (11:30→20:44)
--- NOTE | 2024-07-07 11:43 | CASEMGMT ---
Discharge Planning A list of?SNF providers including quality and resource use data and consistent with the patient's preferred geographic region ([id number]), medical needs, and insurance network was created in [employer] Guide.? This list was provided to the SW. Milly Gallardo Discharge Planning Asst.
--- NOTE | 2024-07-07 13:45 | RAD_ITS ---
EXAM: Inspiration expiration views following a left thoracentesis. CLINICAL HISTORY: Left thoracentesis. COMPARISON: Comparison is made with prior study dated July 07, 2024 earlier in the day. TECHNIQUE: Inspiration expiration views were obtained. FINDINGS: The patient is status post left thoracentesis. No evidence of pneumothorax. Residual pleural-parenchymal changes seen at the left lung base. Multiple right rib fractures. RAD/Chest Insp/Exp 2 View IMPRESSION: Status post left thoracentesis. No evidence of pneumothorax. Residual pleural-parenchymal changes seen. Reading Location: [place] [id number]
[2024-07-07] MEDS: Lidocaine 2% (20 ml mdv) 20 ML Vial INFILT (13:50)
--- NOTE | 2024-07-07 13:59 | OP.PCM_ITS ---
Problems Associated Problem List Diagnoses (1) Pleural effusion on left: Multi Select Codes Radiology Radiology US Procedures: 33340 Thoracentesis Operative Report (Standard) Operative Information Date of Procedure: 07/07/24 Pre-Operative Diagnosis: Pleural effusion Post-Operative Diagnosis: Pleural effusion Surgery/Procedure Performed: Ultrasound-guided thoracentesis tariff compiling clerk: No Type of Anesthesia: Local Procedure Start Time: 13:38 Procedure Stop Time: 13:55 Select all DRAINS/GRAFTS/IMPLANTS that apply: None Estimated Blood Loss: 0 Specimen collected: Yes Description of specimen(s) removed: 100 mL of cloudy yellow fluid Description of surgery: PROCEDURE: Ultrasound Guided Thoracentesis ORDERING PROVIDER: Dr. Jonel Mckeon INDICATION: Male, 64 years old. Pleural effusion. PROVIDER: MIKE Baxter PROCEDURE: The risks, benefits, and alternatives to the procedure were explained to the patient. The specific risks of bleeding, infection, and pneumothorax requiring chest tube insertion were discussed and accepted. Written informed consent was obtained. Coagulation studies were reviewed prior to the procedure. Dr. Alfonso in agreement to proceed. The patient was placed in the sitting, upright position. Ultrasonographic evaluation of the bilateral lower pleural spaces was carried out. An adequate pocket was identified in the left lower pleural space. The overlying skin was prepped with chlorhexidine and draped in sterile fashion. 2 % lidocaine was administered subcutaneously for local anesthesia. Under ultrasound guidance, a 5-Vietnamese thoracentesis needle/catheter system was advanced into the left posterior lower pleural fluid collection. 580 ml of cloudy yellow colored fluid was drained. A sample was sent to the lab for diagnostic purposes. The catheter was removed, and a sterile dressing was applied. The patient tolerated the procedure well. A chest x-ray was ordered. There was no evidence of pneumothorax. There were no immediate complications. The procedure was proctored by Dr. Alfonso. The patient returned to his inpatient room. IMPRESSION: Successful ultrasound guided thoracentesis of left pleural effusion. Surgical Findings: None Complications Complications: No
[2024-07-07] MEDS: Ketorolac 15 MG/ML Vial IV (14:25)
[2024-07-07] MEDS: 0.9% Saline Lock 10 ML Syringe IV ×2 (14:25→21:47)
--- NOTE | 2024-07-07 14:35 | CASEMGMT ---
Addendum entered by Mei Elizabeth 07/07/24 14:46: Pt states he stopped drinking alcohol a month ago. Pt smokes less than a pack of cigarettes per day. Pt denies any street or illegal drug use. Original Note: Spoke with PT prior to assessment who states pt is in need of SNF. MIKHAIL GAVIN Assessment: Face to Face with pt for initial transition planning/care coordination assessment. MIKHAIL GAVIN introduced self and role at [facility], pt voices understanding and consents to assessment. Pt is A&O x4 and answers all questions appropriately at this time. Pt sitting up in bed with nurse at bedside. Care providers, pharmacy, and demographics verified/updated. Admitting Dx: leukocytosis, lactic acidosis and hypotension Strata Score: 1 PCP:B[facility] Specialists:Denies Preferred Pharmacy: [facility] Insurance: Int Benefit Admin Prescription Benefit: yes LNOK: Mariah Stephens, sister Living Arrangements: Pt lives with his sister and brother in law for the past 2 wks in a single story home with 2 steps to enter. Pt states his home is a two story home. Pt reports his sister assists with bathing and dressing as well as does meals, laundry and gets groceries. Pt states his sister just signed papers for him to go to a SNF in [place] [address]. He believes this may be [facility]. Transportation: Pt does not drive and his sister provides him with transportation. DME:standard walker, cane HHC/SNF: Pt denies hx of Pt states he does not think his insurance covers SNF. He states he was planning on private paying to be there and he has the funds to do so. Updated SW. Provided pt with a list of SNF's created by dc assistant manager/embalmer. Pt states no further concerns/needs. CM to follow. Advised pt to ask CM if any further questions/concerns/needs arise, voices understanding. Pt Goal: [facility] Plan: [facility] pending acceptance and confirmation this is the facility the patient's sister has been working with. Salvatore ELIZONDO CM
--- NOTE | 2024-07-07 15:22 | PCM.PROGNOTE ---
Subjective Subjective Patient seen and examined. He had no active complaints and was comfortably eating breakfast. He denied feeling short of breath, cough, chest pain, palpitations, dizziness, nausea, vomiting or any other symptoms. Review of systems is otherwise negative. Objective Data Objective Data Vital Signs: Vital Signs Temp Pulse Resp BP Pulse Ox O2 Del Method 99 F 92 18 141/86 H 96 Room Air 07/07/24 14:20 07/07/24 14:30 07/07/24 14:21 07/07/24 14:21 07/07/24 14:20 07/07/24 14:21 Oxygen Delivery Method Room Air Weight: 182 lb 8.684 oz Body Mass Index (BMI) 24.0 Intake & Output: Intake and Output for Last 24 Hours 07/05/24 07/06/24 07/07/24 23:59 23:59 23:59 Intake Total 1000 / 1000 1734.80 / 1734.80 Output Total 980 / 980 Balance 1000 / 1000 754.80 / 754.80 Lab / Micro Data 07/07/24 08:10 07/07/24 08:10 Labs: Laboratory Results - last 24 hr 07/06/24 15:22: WBC 15.5 H, RBC 2.68 L, Hgb 9.2 L, Hct 28.1 L, MCV 104.9 H, MCH 34.3 H, MCHC 32.7, RDW Std Deviation 54.9 H, RDW Coeff of Narciso 14.5, Plt Count 733 H, MPV 9.9, Immature Gran % (Auto) 0.600, Neut % (Auto) 78.0 H, Lymph % (Auto) 9.1 L, Barry % (Auto) 9.5, Eos % (Auto) 2.3, Baso % (Auto) 0.5, Absolute Neuts (auto) 12.1 H, Absolute Lymphs (auto) 1.41, Nucleated RBC % 0, Sodium 137, Potassium 3.5, Chloride 99, Carbon Dioxide 20.8 L, Anion Gap 17 H, BUN 14, Creatinine 1.05, Estim Creat Clear Calc 81.38, Est GFR (MDRD) Non-Af 80, BUN/Creatinine Ratio 13.0, Glucose 118 H, Lactic Acid 2.1 H*, Calcium 9.6, Total Bilirubin 0.93, AST 225 H, ALT 106 H, Alkaline Phosphatase 145 H, Troponin T High Sens 26 H, Total Protein 8.2, Albumin 3.7, Globulin 4.5 H, Albumin/Globulin Ratio 0.8 L, Ethyl Alcohol < 10.1 07/06/24 16:45: Blood Type A NEGATIVE, Antibody Screen NEGATIVE 07/06/24 17:29: Urine Color Jazlyn, Urine Clarity Clear, Urine pH 5.0, Ur Specific [place] 1.020, Urine Protein 100 H, Urine Glucose (UA) Normal, Urine Ketones Negative, Urine Occult Blood Negative, Urine Nitrite Negative, Urine Bilirubin 1 H, Urine Urobilinogen 1 H, Ur Leukocyte Esterase 25 H, Urine RBC 0 SEEN, Urine WBC 0-5 SEEN, Ur Squamous Epith Cells 0 SEEN, Calcium Oxalate Crystal 1+, Urine Bacteria 0 SEEN, Hyaline Casts 25-50 SEEN, Fine Granular Casts 0-5 SEEN, Urine Mucus 1+ 07/06/24 23:35: PT 13.9, INR 1.1, Lactic Acid 1.2, Serum Folate 8.90 07/07/24 00:25: Troponin T High Sens 20 D 07/07/24 01:55: Hemoglobin A1c 4.6, Phosphorus 3.0, Magnesium 1.7, Troponin T Hi Sens 2 Hr 20, Vitamin B12 1262 H, TSH 1.230 07/07/24 02:05: Urine Opiates Screen NEGATIVE, U Buprenorphine Qual NEGATIVE, Ur Oxycodone Screen PRESUMPTIVE POSITIVE, Urine Methadone Screen NEGATIVE, Urine Fentanyl Screen NEGATIVE, Ur Barbiturates Screen PRESUMPTIVE POSITIVE, Ur Phencyclidine Scrn NEGATIVE, Ur Amphetamines Screen NEGATIVE, U Benzodiazepines Scrn NEGATIVE, Urine Cocaine Screen NEGATIVE, U Cannabinoids Screen NEGATIVE 07/07/24 04:20: Troponin T Hi Sens 4Hr 23 H, NT pro BNP II 182, Triglycerides 114, Cholesterol 133, LDL Cholesterol, Calc 83, VLDL Cholesterol 23, HDL Cholesterol 27 L, Cholesterol/HDL Ratio 4.94 07/07/24 08:10: WBC 10.9, RBC 2.18 L, Hgb 7.5 L, Hct 22.5 L, MCV 103.2 H, MCH 34.4 H, MCHC 33.3, RDW Std Deviation 53.4 H, RDW Coeff of Narciso 14.4, Plt Count 613 H, MPV 10.3, Immature Gran % (Auto) 0.600, Neut % (Auto) 71.5 H, Lymph % (Auto) 12.5 L, Barry % (Auto) 10.6 H, Eos % (Auto) 3.9, Baso % (Auto) 0.9, Absolute Neuts (auto) 7.8 H, Absolute Lymphs (auto) 1.36, Nucleated RBC % 0, Sodium 136, Potassium 3.4, Chloride 105, Carbon Dioxide 18.6 L, Anion Gap 13, BUN 7, Creatinine 0.63 L, Estim Creat Clear Calc 135.63, Est GFR (MDRD) Non-Af 107, BUN/Creatinine Ratio 11.6, Glucose 101 H, Calcium 8.3 Micro: Microbiology 07/07/24 02:05 Urine, Clean Catch Legionella Antigen - Final 07/07/24 02:05 Urine, Clean Catch Streptococcus pneumoniae Antigen (M - Final Radiography Diagnostic Testing: Radiology Impression Brain CT 07/06/24 15:12 IMPRESSION: No acute abnormal intracranial finding. Depressed anterior nasal bridge fracture. Reading Location: [facility] Chest X-Ray 07/06/24 15:35 IMPRESSION: Minimally displaced left 6th and probably 7th rib fractures. Moderate size left pleural effusion with overlying atelectasis/infiltrate. Reading Location: [facility] Chest CTA 07/06/24 15:57 IMPRESSION: Nondisplaced left 6th through 9th rib fractures. Moderate-sized left pleural effusion with overlying atelectasis. No pulmonary artery filling defect to suggest embolus. Reading Location: [facility] Abdomen/Pelvis CT 07/06/24 23:29 IMPRESSION: 1. Moderate left pleural effusion. 2. Passive atelectatic airspace disease in the left lower lobe, unchanged. 3. Mildly displaced acute fractures of the left seventh, eighth and ninth ribs, unchanged. 4. Hepatomegaly measuring 23 cm. 5. Hepatic steatosis. 6. Mild diffuse irregularity of the hepatic contour, probably chronic parenchymal liver disease. 7. Scattered simple cysts with the largest in the segment 4 measuring 2.3 cm. No follow-up is needed. 8. Mild prostatomegaly. 9. Scattered prostatic calcifications. 10. Mild osteopenia. 11. Mild diffuse spondylosis. Reading Location: [place] [address] Echocardiogram 07/06/24 23:54 Interpretation Summary Normal LV size. Left ventricular systolic function is normal. The left ventricular ejection fraction is 60 %. Stage 1 diastolic dysfunction. Pulmonary artery systolic pressure is 54 mmHg. Ordering Physician: Jonel Mckeon Referring Physician: Jonel Mckeon Performed By: Mayra Freeman, RDCS, RVT Chest X-Ray 07/07/24 05:50 IMPRESSION: No significant interval change as above. Reading Location: [facility] Chest X-Ray 07/07/24 13:45 IMPRESSION: Status post left thoracentesis. No evidence of pneumothorax. Residual pleural-parenchymal changes seen. Reading Location: [facility]1 Rhythm Strip Rhythm Strip: Sinus Tach Rate: 125 Ectopy: None Physical Exam Const alert, oriented x3, no apparent distress and well nourished General Appearance: cooperative and well developed HEENT normocephalic, head/scalp atraumatic, moist oral mucous membranes and oropharynx normal Eyes PERRL and EOMs intact bilaterally Neck no lymphadenopathy and supple Lymph Lymphatic: no lymphadenopathy noted and no lymphedema noted Resp Resp Narrative: Mildly diminished breath sounds bibasilarly. No wheezes or crackles. On room air. Cardio S1 normal heart sound, S2 normal heart sound and no murmurs GI normal to inspection, nondistended, normoactive bowel sounds, soft to palpation, non-tender and non-distended Extremity normal capillary refill, no clubbing, cyanosis or edema and no calf tenderness General Extremity: no tenderness to palpation of joints or extremities Skin General Skin Exam: no breakdown Neuro CN's II-XII intact bilaterally, no focal motor deficits and no sensory deficits noted Motor Exam: strength 5/5 throughout and general weakness Psych thought process normal, cooperative and affect normal Appearance: appropriate Assessment & Plan Assessment/Plan (1) Tobacco abuse: (2) Frequent falls: (3) Near syncope: PLAN: Plan #Sepsis Etiology of sepsis was not clear. He was hypotensive at 72/50 mmHg on admission. Lactic acid was also elevated and WBC was also elevated. He was recently admitted at [facility] for C. difficile. Currently on the oral vancomycin and IV metronidazole as well. However patient is not having any diarrhea and does not have any abdominal pain. I am doubtful that the sepsis is due to C. difficile colitis. He does have a left-sided moderate-sized pleural effusion with overlying atelectasis. I question whether he may have some pneumonia with a parapneumonic effusion. He was recently admitted at [facility] For pneumothorax as a result of multiple left rib fractures from mechanical fall. thoracentesis done today. Fluid to be sent for analysis. Thoracentesis resulted in removal of 100 cc of cloudy yellow fluid 2D echo also ordered. SIRS criteria has resolved. WBC is down to 10.9 from 15.5 on admission. Will DC IV metronidazole in the absence of any evidence of colitis on CT #Left rib fractures: He sustained a mechanical fall and had rib fractures of the left 7th, 8th and 9th ribs. These are present on the CT and unchanged from prior imaging. Will monitor. Continue p.o. and IV pain medication. #Acute on chronic anemia: Hemoglobin was 9.2 yesterday and is 11.5 today. No clear evidence of bleeding. Thoracentesis also did not reveal any bloody fluid. Will check stool for occult blood. If anemia persists, will transfuse to keep hemoglobin more than 7. #Debility due to frequent falls: PT OT on board. Fall precautions. #Benign essential hypertension: On losartan #History of lymphoma: This may be the cause of his elevated WBC #Depression: On escitalopram #History of BPH: On Flomax DVT prophylaxis: SCDs Charges/Coding Visit Charges Inpatient E&M: 48335 Subs Hosp L2
[2024-07-07 18:39] LABS: Cytology, Body Fluid / CSF SEE PATHOLOGY REPORT
[2024-07-07 19:38] LABS: LDH,Body Fluid 519 Units/L (Not Establ.); Protein, Body Fluid 4.9 g/dL (Not Establ.)
[2024-07-07 20:07] LABS: Glucose, Body Fluid 68 mg/dL (Not Establ.)
[2024-07-07 21:25] LABS: Appearance/Body Fluid CLEAR; Color/Body Fluid YELLOW; Source- Body Fluid THORACENTESIS
[2024-07-07 21:48] LABS: Lymphocytes 21 %; Macrophages 1 %; Monocytes 13 %; Neutrophil (Segs) 65 %
[2024-07-07 21:49] LABS: Red Cell Count/Body Fluid 1166 /mm3
[2024-07-07] MEDS: Tamsulosin HCl 0.4 MG Capsule PO (21:49)
[2024-07-07 21:50] LABS: White Blood Count/Body Fluid 0.596 10^3/uL
[2024-07-07 21:51] LABS: Auto B Fluid Analyzer BKGD Ct COUNTS W/IN LIMITS (W/IN LIMITS)
[2024-07-07 21:55] LABS: Body Fluid QC Type(s) BF1
[2024-07-07 21:57] LABS: Body Fluid Total Cells Counted 0.596 10^3/ul
[2024-07-08] VITALS (9 sets, daily range): BP systolic 130–158; BP diastolic 80–96; PULSE 84–117; RESP 16–20; TEMP 36.7–37.2; O2SAT 94–95
[2024-07-08] MEDS: Vancomycin 125 MG/5 ML Susp PO.SYRINGE PO ×4 (00:25→17:55)
[2024-07-08] MEDS: Phenobarbital 32.4 MG Tablet 64.8 MG PO ×7 (00:25→23:37)
[2024-07-08 05:07] LABS: HEPATITIS B SURFACE AG Negative (Negative); Hep C Antibodies Non Reactive (Non Reactive); Hepatitis A IgM Antibody Negative (Negative); Hepatitis B Core AB IgM Negative (Negative)
[2024-07-08 05:09] LABS: Absolute Lymphocyte Count 1.59 X10^3/uL (0.83-4.51); Absolute Neutrophil Count 5.7 X10^3/uL (2.0-7.7); Basophil# 0.11 X10^3/uL; Basophil% 1.2 % (0-1); Eosinophil# 0.59 X10^3/uL; Eosinophils% 6.5 % (0-5); Hematocrit 23.7 % (40-54); Hemoglobin 7.7 g/dL (13.0-16.5); Lymphocyte # 1.59 X10^3/ul (0.83-4.51); Lymphocyte % 17.6 % (19-41); Mean Corp Hgb Conc 32.5 g/dL (32-36); Mean Corpuscular Hgb 33.2 pg (27.0-32.0); Mean Corpuscular Volume 102.2 fL (80-94); Mean Platelet Vol. 9.8 fl (6.2-12.0); Monocyte# 0.98 X10^3/uL; Monocyte% 10.9 % (0-10); NRBC Flagged by Analyzer 0 % (0-5); Neutrophil # 5.68 X10^3/uL (2.7-7.7); Platelet Count 660 K/mm3 (150-450); RBC Distribution Width CV 14.2 % (11.6-14.6); RBC Distribution Width SD 52.7 fl (35.1-43.9); Red Blood Count 2.32 M/mm3 (4.6-6.2)
[2024-07-08 05:55] LABS: Anion Gap 13 (5-15); BUN 5 mg/dL (4-19); BUN/Creat Ratio 9.1 RATIO (10-20); Calcium,Total 8.6 mg/dL (7.6-11.0); Carbon Dioxide 20.7 mmol/L (21.0-32.0); Chloride 102 mmol/L (98-108); EST Glomerular Filtration Rate 108 (>60); Estimated Creatinine Clearance 142.41 ml/min (50-250); Glucose 99 mg/dL (70-99); Potassium 3.3 mmol/L (3.3-5.1); Sodium Level 136 mmol/L (133-145)
[2024-07-08] MEDS: Thiamine Hydrochloride 100 MG Tablet PO (07:45)
[2024-07-08] MEDS: Folic Acid 1 MG Tablet PO (07:45)
[2024-07-08] MEDS: Loratadine 10 MG Tablet 5 MG PO (07:45)
[2024-07-08] MEDS: Lactobacillis Acidophilus 1 CAP PO ×4 (07:45→22:10)
[2024-07-08] MEDS: Escitalopram Oxalate 20 MG Tablet PO (07:45)
--- NOTE | 2024-07-08 08:10 | NURSING ---
ME911 dispensed extra phenobarb for the 0745 dose on 07/08. Taper decreased to 64.8mg. One tablet was returned to [place] with Luis Monroy RN
[2024-07-08 08:53] LABS: Albumin, Serum 2.9 g/dL (3.4-4.8)
[2024-07-08] MEDS: oxyCODONE 5 MG Tablet PO ×2 (09:18→22:10)
[2024-07-08 09:51] LABS: LDH 247 U/L (87-241)
--- NOTE | 2024-07-08 11:26 | CASEMGMT ---
Social Work- DEBORAH called pt sister/POA to discuss discharge plans. Pt sister reports that pt will d/c direct to [facility]. Sister will stop and pay 30 [address] to pickling operator pt this afternoon. DCA updated. ANDERS is verifying facility ability to accept pt today. DEBORAH remains available to follow. Plan: [facility]; private pay JARRETT Mason
--- NOTE | 2024-07-08 14:19 | CASEMGMT ---
Social Work- SW received notice that [facility] to [facility]. SW spoke with pt sister who is working with admissions for placement at [facility]. Pt sister reiterated that pt can not d/c home. SW updated pt on facility change. Pt is agreeable, expressing reena the just wants to d/c today. SW updated DCA on status. JARRETT Mason
--- NOTE | 2024-07-08 16:40 | NURSING ---
All documentation by nursing home assistant administrator Michael Russell reviewed by professor of nursing Liliam Morrow BSN, RN.
--- NOTE | 2024-07-08 17:19 | PN_ITS ---
Subjective Subjective Patient seen and examined. He had no active complaints. He felt much better. Review of systems otherwise negative. Patient tells me that he was post to be discharged home today but it turns out he is actually going to [place] on [address]. Review of systems otherwise negative. Objective Data Objective Data Vital Signs: Vital Signs Temp Pulse Resp BP Pulse Ox O2 Del Method 99 F 93 20 H 158/96 H 95 Room Air 07/08/24 14:07 07/08/24 14:43 07/08/24 14:07 07/08/24 14:07 07/08/24 14:07 07/08/24 15:15 Oxygen Delivery Method Room Air Weight: 182 lb 8.684 oz Body Mass Index (BMI) 24.0 Intake & Output: Intake and Output for Last 24 Hours 07/06/24 07/07/24 07/08/24 23:59 23:59 23:59 Intake Total 1000 / 1000 2458.55 / 2458.55 722 / 722 Output Total 1380 / 1380 350 / 350 Balance 1000 / 1000 1078.55 / 1078.55 372 / 372 Lab / Micro Data 07/08/24 04:35 07/08/24 04:35 Labs: Laboratory Results - last 24 hr 07/06/24 23:35: Hepatitis A IgM Ab Negative, Hep Bs Antigen Negative, Hep B Core IgM Ab Negative, Hepatitis C Ab (EIA) Non Reactive, Hep C Ab Comment Comment 07/07/24 : Fluid Source THORACENTESIS, Fluid Color YELLOW, Fluid Appearance CLEAR, Fluid WBC 0.596, Fluid RBC 1166, Fluid Tot Cell Count 0.596, Fluid Neutrophils 65, Fluid Lymphocytes 21, Fluid Monocytes 13, Fluid Macrophages 1, Fl Pathologist Comment May follow, Fluid Glucose 68, Fluid Total Protein 4.9, Fluid LDH 519, Fluid Comment 2 SEE COMMENT 07/08/24 04:35: WBC 9.0, RBC 2.32 L, Hgb 7.7 L, Hct 23.7 L, MCV 102.2 H, MCH 33.2 H, MCHC 32.5, RDW Std Deviation 52.7 H, RDW Coeff of Narciso 14.2, Plt Count 660 H, MPV 9.8, Immature Gran % (Auto) 0.800, Neut % (Auto) 63.0, Lymph % (Auto) 17.6 L, [place] % (Auto) 10.9 H, Eos % (Auto) 6.5 H, Baso % (Auto) 1.2 H, Absolute Neuts (auto) 5.7, Absolute Lymphs (auto) 1.59, Nucleated RBC % 0, Sodium 136, Potassium 3.3, Chloride 102, Carbon Dioxide 20.7 L, Anion Gap 13, BUN 5, C reatinine 0.60 L, Estim Creat Clear Calc 142.41, Est GFR (MDRD) Non-Af 108, B UN/Creatinine Ratio 9.1 L, Glucose 99, Calcium 8.6, Lactate Dehydrogenase 247 H, Albumin 2.9 L Micro: Microbiology 07/07/24 Unknown Fluid - Thoracentesis Fluid Gram Stain - Final 07/07/24 Unknown Fluid - Thoracentesis Fluid Body Fluid Culture - Preliminary 07/07/24 02:05 Urine, Clean Catch Legionella Antigen - Final 07/07/24 02:05 Urine, Clean Catch Streptococcus pneumoniae Antigen (M - Final Rhythm Strip Rhythm Strip: Sinus Tach Rate: 125 Ectopy: None Physical Exam Const alert, oriented x3, no apparent distress and average body habitus General Appearance: cooperative HEENT normocephalic, head/scalp atraumatic, hearing grossly normal bilaterally, moist oral mucous membranes and oropharynx normal Eyes PERRL and EOMs intact bilaterally Neck no lymphadenopathy and supple Lymph Lymphatic: no lymphadenopathy noted and no lymphedema noted Resp Resp Narrative: Mildly diminished breath sounds bibasilarly. No wheezes or crackles. On room air. Cardio regular rate, regular rhythm, S1 normal heart sound, S2 normal heart sound and no murmurs GI normal to inspection, nondistended, normoactive bowel sounds, soft to palpation, non-tender and non-distended Extremity normal to inspection, full ROM, normal capillary refill, no clubbing, cyanosis or edema and no calf tenderness General Extremity: no tenderness to palpation of joints or extremities Skin General Skin Exam: no breakdown Neuro oriented x3, CN's II-XII intact bilaterally, moves all extremities, no focal motor deficits and no sensory deficits noted Sensorium / Orientation: awake, alert, oriented to person, oriented to place and oriented to time Speech: speech normal Motor Exam: strength 5/5 throughout and general weakness Psych thought process normal, cooperative and affect normal Appearance: appropriate Assessment & Plan Assessment/Plan (1) Tobacco abuse: (2) Frequent falls: (3) Near syncope: PLAN: Plan #Sepsis * Etiology of sepsis was not clear. He was hypotensive at 72/50 mmHg on admission. Lactic acid was also elevated and WBC was also elevated. He was recently admitted at [facility] for C. difficile. * Currently on the oral vancomycin and IV metronidazole as well. However patient is not having any diarrhea and does not have any abdominal pain. I am doubtful that the sepsis is due to C. difficile colitis. * He does have a left-sided moderate-sized pleural effusion with overlying atelectasis. I question whether he may have some pneumonia with a parapneumonic effusion. He was recently admitted at [facility] For pneumothorax as a result of multiple left rib fractures from mechanical fall. * He had thoracentesis with removal of 580 cc of cloudy yellow fluid. * Light criteria showed taht the fluid was likely an exudative effusion. This may be due to a parapneumonic effusion from the rib fractures * WBC is normal at 9. Patient is also on room air. Will cover empirically with IV levofloxacin. * 2D echo showed EF of 60% with stage I diastolic dysfunction and pulmonary artery systolic pressure of 54 mmHg. * consult pulmonology. #Left rib fractures: * He sustained a mechanical fall and had rib fractures of the left 7th, 8th and 9th ribs. * These are present on the CT and unchanged from prior imaging. Will monitor. * Continue p.o. and IV pain medication. * #Acute on chronic anemia: * Hemoglobin is 7.7 today. Was 7.5 yesterday. Will monitor closely * Thoracentesis also did not reveal any bloody fluid. * * #Debility due to frequent falls: PT OT on board. Fall precautions. #Benign essential hypertension: On losartan #History of lymphoma: stable #Depression: On escitalopram #History of BPH: On Flomax DVT prophylaxis: SCDs Disposition: Awaiting DC to shelter facility. Charges/Coding Visit Charges Inpatient E&M: 74818 Subs Hosp L2
[2024-07-08] MEDS: 0.9% Saline Lock 10 ML Syringe IV ×2 (17:55→22:10)
[2024-07-08] MEDS: levoFLOXacin IV 750 MG/150 ML BAG 100 MG IV (17:55)
[2024-07-08] MEDS: Tamsulosin HCl 0.4 MG Capsule PO (22:10)
[2024-07-08] MEDS: traZODone 50 MG Tablet PO (23:37)
[2024-07-09] VITALS (7 sets, daily range): BP systolic 150–160; BP diastolic 87–90; PULSE 82–97; RESP 18–24; TEMP 36.8–37; O2SAT 94–97
[2024-07-09] MEDS: Vancomycin 125 MG/5 ML Susp PO.SYRINGE PO ×3 (02:25→13:52)
[2024-07-09] MEDS: Phenobarbital 32.4 MG Tablet 64.8 MG PO ×3 (04:26→13:52)
[2024-07-09 06:22] LABS: Absolute Lymphocyte Count 1.63 X10^3/uL (0.83-4.51); Absolute Neutrophil Count 6.7 X10^3/uL (2.0-7.7); Eosinophil# 0.59 X10^3/uL; Eosinophils% 5.8 % (0-5); Hemoglobin 7.8 g/dL (13.0-16.5); Lymphocyte # 1.63 X10^3/ul (0.83-4.51); Lymphocyte % 15.9 % (19-41); Mean Corp Hgb Conc 32.5 g/dL (32-36); Mean Corpuscular Hgb 33.2 pg (27.0-32.0); Mean Corpuscular Volume 102.1 fL (80-94); Mean Platelet Vol. 9.7 fl (6.2-12.0); Monocyte# 1.19 X10^3/uL; Monocyte% 11.6 % (0-10); NRBC Flagged by Analyzer 0 % (0-5); Neutrophil # 6.67 X10^3/uL (2.7-7.7); Platelet Count 674 K/mm3 (150-450); RBC Distribution Width SD 51.1 fl (35.1-43.9); Red Blood Count 2.35 M/mm3 (4.6-6.2); White Blood Count 10.3 K/mm3 (4.4-11.0)
[2024-07-09 06:30] LABS: Anion Gap 12 (5-15); BUN 5 mg/dL (4-19); BUN/Creat Ratio 7.5 RATIO (10-20); Calcium,Total 8.4 mg/dL (7.6-11.0); Carbon Dioxide 21.4 mmol/L (21.0-32.0); Chloride 102 mmol/L (98-108); EST Glomerular Filtration Rate 108 (>60); Estimated Creatinine Clearance 142.41 ml/min (50-250); Glucose 107 mg/dL (70-99); Potassium 3.2 mmol/L (3.3-5.1); Sodium Level 136 mmol/L (133-145)
--- NOTE | 2024-07-09 08:21 | CASEMGMT ---
Addendum entered by Milly Gallardo 07/09/24 11:38: [facility] will transport at 3p. SW updated. Milly Gallardo DC Planning Asst. Addendum entered by Milly Gallardo 07/09/24 09:10: Updates sent to [facility]. Milly Gallardo DC Planning Asst. Original Note: Discharge Planning Referral sent to [facility] and they have declined. [facility] has been in communication with pts family prior to hospital admission and was given permission by them to send referral to [facility]. Referral remains pending with [facility]. Msg sent to [facility] this morning to check on status. Milly Gallardo DC Planning Asst.
[2024-07-09] MEDS: Lactobacillis Acidophilus 1 CAP PO (09:27)
[2024-07-09] MEDS: Folic Acid 1 MG Tablet PO (09:27)
[2024-07-09] MEDS: Thiamine Hydrochloride 100 MG Tablet PO (09:27)
[2024-07-09] MEDS: Loratadine 10 MG Tablet 5 MG PO (09:27)
[2024-07-09] MEDS: Escitalopram Oxalate 20 MG Tablet PO (09:28)
[2024-07-09] MEDS: Potassium Chloride Oral Tablet 20 MEQ 40 MEQ PO (09:33)
[2024-07-09] MEDS: oxyCODONE 5 MG Tablet PO (10:06)
--- NOTE | 2024-07-09 11:02 | PN_ITS ---
Subjective Subjective Patient seen and examined. He had no active complaints and asked about discharge. He is on room air. Review of systems is otherwise negative. He is awaiting placement. Objective Data Objective Data Vital Signs: Vital Signs Temp Pulse Resp BP Pulse Ox O2 Del Method 98.6 F 89 24 H 158/90 H 95 Room Air 07/09/24 08:02 07/09/24 10:56 07/09/24 08:02 07/09/24 08:02 07/09/24 08:02 07/09/24 08:02 Oxygen Delivery Method Room Air Weight: 182 lb 8.684 oz Body Mass Index (BMI) 24.0 Intake & Output: Intake and Output for Last 24 Hours 07/07/24 07/08/24 07/09/24 23:59 23:59 23:59 Intake Total 2458.55 / 2458.55 1472 / 1472 300 / 300 Output Total 1380 / 1380 850 / 850 500 / 500 Balance 1078.55 / 1078.55 622 / 622 -200 / -200 Lab / Micro Data 07/09/24 05:42 07/09/24 05:42 Labs: Laboratory Results - last 24 hr 07/07/24 : Fluid Source THORACENTESIS, Fluid Color YELLOW, Fluid Appearance CLEAR, Fluid WBC 0.596, Fluid RBC 1166, Fluid Tot Cell Count 0.596, Fluid Neutrophils 65, Fluid Lymphocytes 21, Fluid Monocytes 13, Fluid Macrophages 1, Fl Pathologist Comment May follow, Fluid Comment 2 SEE COMMENT 07/09/24 05:42: WBC 10.3, RBC 2.35 L, Hgb 7.8 L, Hct 24.0 L, MCV 102.1 H, MCH 33.2 H, MCHC 32.5, RDW Std Deviation 51.1 H, RDW Coeff of Narciso 14.0, Plt Count 674 H, MPV 9.7, Immature Gran % (Auto) 0.700, Neut % (Auto) 65.0, Lymph % (Auto) 15.9 L, Mcleod % (Auto) 11.6 H, Eos % (Auto) 5.8 H, Baso % (Auto) 1.0, Absolute Neuts (auto) 6.7, Absolute Lymphs (auto) 1.63, Nucleated RBC % 0, Sodium 136, P otassium 3.2 L, Chloride 102, Carbon Dioxide 21.4, Anion Gap 12, BUN 5, C reatinine 0.60 L, Estim Creat Clear Calc 142.41, Est GFR (MDRD) Non-Af 108, B UN/Creatinine Ratio 7.5 L, Glucose 107 H, Calcium 8.4 Micro: Microbiology 07/06/24 23:35 Blood Culture (Wb) - Other Blood Culture - Preliminary No growth in 48 hours. 07/06/24 23:35 Blood Culture (Wb) - Other Blood Culture - Preliminary No growth in 48 hours. 07/07/24 Unknown Fluid - Thoracentesis Fluid Gram Stain - Final 07/07/24 Unknown Fluid - Thoracentesis Fluid Body Fluid Culture - Preliminary Staphylococcus aureus Staphylococcus aureus#2 07/07/24 02:05 Urine, Clean Catch Legionella Antigen - Final 07/07/24 02:05 Urine, Clean Catch Streptococcus pneumoniae Antigen (M - Final Rhythm Strip Rhythm Strip: Sinus Tach Rate: 125 Ectopy: None Physical Exam Const alert, oriented x3, no apparent distress and average body habitus General Appearance: cooperative HEENT normocephalic, head/scalp atraumatic, hearing grossly normal bilaterally, moist oral mucous membranes and oropharynx normal Eyes PERRL and EOMs intact bilaterally Neck no lymphadenopathy and supple Lymph Lymphatic: no lymphadenopathy noted and no lymphedema noted Resp Resp Narrative: Mildly diminished breath sounds bibasilarly. No wheezes or crackles. On room air. Cardio regular rate, regular rhythm, S1 normal heart sound, S2 normal heart sound and no murmurs GI normal to inspection, nondistended, normoactive bowel sounds, soft to palpation, non-tender and non-distended Extremity normal to inspection, full ROM, normal capillary refill, no clubbing, cyanosis or edema and no calf tenderness General Extremity: no tenderness to palpation of joints or extremities Skin Skin Narrative: P General Skin Exam: no breakdown Neuro oriented x3, CN's II-XII intact bilaterally, moves all extremities, no focal motor deficits and no sensory deficits noted Sensorium / Orientation: awake, alert, oriented to person, oriented to place and oriented to time Speech: speech normal Motor Exam: strength 5/5 throughout and general weakness Psych thought process normal, cooperative and affect normal Appearance: appropriate Assessment & Plan Assessment/Plan (1) Tobacco abuse: (2) Frequent falls: (3) Near syncope: PLAN: Plan #Sepsis * likely due to parapneumonic effusion. * Currently on the oral vancomycin and IV metronidazole as well. However patient is not having any diarrhea and does not have any abdominal pain. I am doubtful that the sepsis is due to C. difficile colitis. * He does have a left-sided moderate-sized pleural effusion with overlying atelectasis. I question whether he may have some pneumonia with a parapneumonic effusion. He was recently admitted at [facility] For pneumothorax as a result of multiple left rib fractures from mechanical fall. * He had thoracentesis with removal of 580 cc of cloudy yellow fluid. * Light criteria showed that the fluid was likely an exudative effusion. This may be due to a parapneumonic effusion from the rib fractures * WBC is normal at 10.3. Patient is also on room air. * on IV levofloxacin * 2D echo showed EF of 60% with stage I diastolic dysfunction and pulmonary artery systolic pressure of 54 mmHg. * consult pulmonology. * Ascitic fluid growing Staph aureus, sensitivities pending. Continue levofloxacin for now. * Blood cultures negative so far. #Left rib fractures: * He sustained a mechanical fall and had rib fractures of the left 7th, 8th and 9th ribs. * These are present on the CT and unchanged from prior imaging. Will monitor. * Continue p.o. and IV pain medication. * #Acute on chronic anemia: * Hemoglobin is 7.8 today. * Thoracentesis also did not reveal any bloody fluid. * Will monitor and transfuse if hemoglobin is less than 7. * #Debility due to frequent falls: PT OT on board. Fall precautions. #Benign essential hypertension: On losartan #History of lymphoma: stable #Depression: On escitalopram #History of BPH: On Flomax DVT prophylaxis: SCDs Disposition: Awaiting DC to longterm facility. Charges/Coding Visit Charges Inpatient E&M: 52058 Subs Hosp L2
--- NOTE | 2024-07-09 12:01 | EX.PCM.CONCC ---
Assessment & Plan Assessment/Plan (1) Pleural effusion on left: PLAN: Plan RECOMMENDATIONS: 1. Continue antimicrobials, pending pleural fluid culture results, for at least an additional 7 days. 2. I would recommend that the patient follow-up in the pulmonary medicine clinic after discharge. 3. Repeat chest imaging should be obtained following completion of antimicrobials to ensure radiographic improvement. 4. If the patient does not improve radiographically with antimicrobials, recommend referral to thoracic surgery for possible VATS. 5. Please call with any additional questions. IMPRESSIONS: 1. Exudative left-sided pleural effusion Clinical concern for parapneumonic etiology. The patient was hospitalized earlier in the month at [facility] following a fall with resultant nondisplaced left-sided rib fractures and pneumothorax, which required chest tube placement. There has been good radiographic improvement of the patient's pleural effusion following thoracentesis yesterday. He remains on empiric IV antimicrobials. I would recommend that the patient be continued on antimicrobials for at least an additional 7 days. The patient should ultimately follow-up in the pulmonary medicine clinic after discharge, with plans to obtain repeat chest imaging after completing the antibiotic treatment course. If the patient does not demonstrate further radiographic improvement, referral to thoracic surgery can be placed for possible VATS. This note was generated with [employer] dictation software. It may contain incorrect words, spelling, and punctuation that were not noted in checking the note before signing. HPI Consult Data Date of Consult: 07/09/24 HPI Narrative Reason for Consultation: Pleural effusion HPI Narrative: The patient is a 64-year-old male, with a history as outlined below, who presented to the emergency department on July 06 with shortness of breath. The patient has a known history of chronic alcohol and tobacco dependency along with BPH. The patient was recently hospitalized at [facility] in early June following a fall which resulted in left-sided rib fractures and pneumothorax requiring chest tube placement. The patient reported that he typically smokes 0.5 packs of cigarettes per day. He has never been formally diagnosed with COPD. The patient does not follow with a lpn per diem at the present time. On presentation to the emergency department, the patient was documented to be afebrile and hypotensive. Initial laboratory evaluation revealed a white blood cell count of 15,000. Chemistry profile was unrevealing. Lactate was mildly elevated at 2.1. Head CT was unremarkable. CT imaging of the chest demonstrated nondisplaced left rib fractures along with a moderate pleural effusion and associated compressive atelectasis with possible airspace disease. The patient was ultimately admitted to the hospital and fluid resuscitated. He was placed on antimicrobial therapy. The patient underwent an ultrasound-guided thoracentesis on July 07 with 580 mL of fluid removed from the left hemithorax. There was good radiographic improvement noted postprocedure. No complication was noted. The patient remains otherwise clinically stable on room air. The patient's pleural fluid analysis was consistent with an exudate, concerning for parapneumonic effusion. FORMERLY [facility], [facility] Home Medications ?Medication ?Instructions ?Recorded ?Last Taken ?Type acetaminophen 325 mg capsule 975 mg PO Q6H PRN fever or pain 07/06/24 Unknown History escitalopram oxalate 20 mg tablet 20 mg PO DAILY 07/06/24 Unknown History fexofenadine 60 mg tablet 60 mg PO DAILY 07/06/24 Unknown History losartan 50 mg tablet 50 mg PO DAILY 07/06/24 Unknown History oxycodone 5 mg tablet 5 mg PO DAILY 07/06/24 Unknown History tamsulosin 0.4 mg capsule 0.4 mg PO QHS 07/06/24 Unknown History vancomycin 125 mg capsule 125 mg PO Q6H 07/06/24 Unknown History Allergy/AdvReac Type Severity Reaction Status Date / Time No Known Allergies Allergy Verified 07/06/24 14:56 Social History Smoking Status: Light Smoker (<10/day) ROS ROS Narrative 10 systems were reviewed with pertinent positives as noted in the HPI above. Physical Exam Const alert and no apparent distress General Appearance: cooperative HEENT normocephalic and head/scalp atraumatic Eyes PERRL, EOMs intact bilaterally and conjunctivae normal Neck supple General: trachea midline Chest inspection of chest normal Resp normal respiratory effort Auscultation: diminished lung sounds; Negative for rales, rhonchi or wheezes Cardio regular rate and regular rhythm GI normal to inspection, nondistended, normoactive bowel sounds Extremity no clubbing, cyanosis or edema Skin no rashes or lesions noted Neuro CN's II-XII intact bilaterally, moves all extremities and no focal motor deficits Psych cooperative and affect normal Lab / Micro Data 07/09/24 05:42 07/09/24 05:42 Labs: Laboratory Results - last 24 hr 07/07/24 : Fluid Source THORACENTESIS, Fluid Color YELLOW, Fluid Appearance CLEAR, Fluid WBC 0.596, Fluid RBC 1166, Fluid Tot Cell Count 0.596, Fluid Neutrophils 65, Fluid Lymphocytes 21, Fluid Monocytes 13, Fluid Macrophages 1, Fl Pathologist Comment May follow, Fluid Comment 2 SEE COMMENT 07/09/24 05:42: WBC 10.3, RBC 2.35 L, Hgb 7.8 L, Hct 24.0 L, MCV 102.1 H, MCH 33.2 H, MCHC 32.5, RDW Std Deviation 51.1 H, RDW Coeff of Narciso 14.0, Plt Count 674 H, MPV 9.7, Immature Gran % (Auto) 0.700, Neut % (Auto) 65.0, Lymph % (Auto) 15.9 L, Moffat % (Auto) 11.6 H, Eos % (Auto) 5.8 H, Baso % (Auto) 1.0, Absolute Neuts (auto) 6.7, Absolute Lymphs (auto) 1.63, Nucleated RBC % 0, Sodium 136, Potassium 3.2 L, Chloride 102, Carbon Dioxide 21.4, Anion Gap 12, BUN 5, Creatinine 0.60 L, Estim Creat Clear Calc 142.41, Est GFR (MDRD) Non-Af 108, BUN/Creatinine Ratio 7.5 L, Glucose 107 H, Calcium 8.4 Micro: Microbiology 07/06/24 23:35 Blood Culture (Wb) - Other Blood Culture - Preliminary No growth in 48 hours. 07/06/24 23:35 Blood Culture (Wb) - Other Blood Culture - Preliminary No growth in 48 hours. 07/07/24 Unknown Fluid - Thoracentesis Fluid Gram Stain - Final 07/07/24 Unknown Fluid - Thoracentesis Fluid Body Fluid Culture - Preliminary Staphylococcus aureus Staphylococcus aureus#2 Rhythm Strip Rhythm Strip: Sinus Tach Rate: 125 Ectopy: None Charges/Coding Visit Charges Inpatient E&M: 41816 Init Hosp L2
--- NOTE | 2024-07-09 13:50 | TREXTCAR_ITS ---
Diet Diet Order/Speech Therapy: 07/07/24 06:55 Diet: Regular - General Food consistency:: Regular Liquid Consistency:: Regular/Thin Type of Dietary Supplement:: Ensure Plus High Protein Diet Comments: 240mL ensure plus HP w/ breakfast and dinner Routine Orders/Code Status Enema Type: Fleetz Enema Frequency: Daily PRN Suppository Type: Dulcolax 10mg Suppository Frequency: Daily PRN DC O2, CPAP, BIPAP needs Home O2 Discharge instructions: No Wound(s) left lateral upper chest: Wound Type: old chest tube site back -left side: Wound Type: Puncture Therapies Weight Bearing: Weight bearing as tolerated Physical Therapy: Eval and Treat Occupational Therapy: Eval and Treat Problem/Diagnosis (1) Pleural effusion on left: Status: Acute Code(s): J90 - Pleural effusion, not elsewhere classified Plan #Sepsis * likely due to parapneumonic effusion. * Currently on the oral vancomycin and IV metronidazole as well. However patient is not having any diarrhea and does not have any abdominal pain. I am doubtful that the sepsis is due to C. difficile colitis. * He does have a left-sided moderate-sized pleural effusion with overlying atelectasis. I question whether he may have some pneumonia with a parapneumonic effusion. He was recently admitted at [facility] For pneumothorax as a result of multiple left rib fractures from mechanical fall. * He had thoracentesis with removal of 580 cc of cloudy yellow fluid. * Light criteria showed that the fluid was likely an exudative effusion. This may be due to a parapneumonic effusion from the rib fractures * WBC is normal at 10.3. Patient is also on room air. * on IV levofloxacin * 2D echo showed EF of 60% with stage I diastolic dysfunction and pulmonary artery systolic pressure of 54 mmHg. * consult pulmonology. * Ascitic fluid growing Staph aureus, sensitivities pending. Continue levofloxacin for now. * Blood cultures negative so far. #Left rib fractures: * He sustained a mechanical fall and had rib fractures of the left 7th, 8th and 9th ribs. * These are present on the CT and unchanged from prior imaging. Will monitor. * Continue p.o. and IV pain medication. * #Acute on chronic anemia: * Hemoglobin is 7.8 today. * Thoracentesis also did not reveal any bloody fluid. * Will monitor and transfuse if hemoglobin is less than 7. * #Debility due to frequent falls: PT OT on board. Fall precautions. #Benign essential hypertension: On losartan #History of lymphoma: stable #Depression: On escitalopram #History of BPH: On Flomax DVT prophylaxis: SCDs Disposition: Awaiting DC to detention facility. Allergies/Procedures Done in Hospital Allergies No Known Allergies Allergy (Verified 07/06/24 14:56) Procedures: Thoracentesis Type of Care/Length of Stay Estimated LOS: Convalescent Care Less Than 30 days Type of Care Needed: Skilled Rehab Potential: Fair Prognosis: Fair Additional Orders/Day of Discharge Day of Discharge: 07/09/24 Dietary and Speech Recommendations Dietitian Recommendations/Changes: Will continue regular diet and add 240mL ensure plus HP w/ breakfast and dinner tray. Additional ONS as needed if weight declines. Discharge Plan Admission Admit Date/Time: 07/06/24 22:51 Primary Reason for Your Visit: parapneumonic effusion Attending Provider: Mamie Mathews Primary Care Provider: YULIANA DE LA CRUZ Consulting Providers: Jonel Mckeon; Alec Marcus; Chuy Long; Marck Davis; Arturo Collado; Jonel Carvajal; Mario Arenas; Tyron Anne; Linda Mckenzie; Aly Be; Nik Peck; Efrem Jin; Ca Stark; Jayce Garg; Teena Jane; Butch Cueto; Garfield Calles; Davno Patel; Angel Fisher; Ang Frazier; Matt Tinajero; Aubrey Romero; Edmar Magallanes; Goran Lopez Instructions Patient Instructions: KATEY RN Thoracentesis Dc Discharge Orders/Prescriptions Prescriptions: New levofloxacin 750 mg tablet 750 mg PO DAILY Qty: 7 0RF Continued acetaminophen 325 mg capsule 975 mg PO Q6H PRN (Reason: fever or pain) oxycodone 5 mg tablet 5 mg PO DAILY vancomycin 125 mg capsule 125 mg PO Q6H losartan 50 mg tablet 50 mg PO DAILY fexofenadine 60 mg tablet 60 mg PO DAILY tamsulosin 0.4 mg capsule 0.4 mg PO QHS escitalopram oxalate 20 mg tablet 20 mg PO DAILY Referrals / Follow Up: YULIANA DE LA CRUZ [Other] - Within 1 Week Arturo Collado DO [Med Staff - Active Staff] - Within 2 Weeks [facility] Doctor,Out of [Non-Staff] - Disposition Disposition (needs filled in before D/C Order can be placed): Longterm Facility
--- NOTE | 2024-07-09 13:51 | PCM.DC.SUM ---
Providers Date of Admission: 07/06/24 Date of Discharge: 07/09/24 Primary Care Physician: YULIANA DE LA CRUZ Consultations 07/08/24 17:24 Consult: Emergency Medical Dispatcher / Pulmonary Medicine Routine Consulting Provider: Intensivists/Pulmonary Med Reason for Consult: exudative left pleural effusion EMERGENT Consult: No MD Notified: Yes Date Notified: 07/09/24 Time Notified: 06:29 Method of Notification: Text Reason For Visit: LEUKOCYTOSIS, LACTIC ACIDOSIS AND HYPOTENSION Diagnosis Discharge Diagnosis (1) Pleural effusion on left: Status: Acute Code(s): J90 - Pleural effusion, not elsewhere classified Plan #Sepsis likely due to parapneumonic effusion. Currently on the oral vancomycin and IV metronidazole as well. However patient is not having any diarrhea and does not have any abdominal pain. I am doubtful that the sepsis is due to C. difficile colitis. He does have a left-sided moderate-sized pleural effusion with overlying atelectasis. I question whether he may have some pneumonia with a parapneumonic effusion. He was recently admitted at [facility] For pneumothorax as a result of multiple left rib fractures from mechanical fall. He had thoracentesis with removal of 580 cc of cloudy yellow fluid. Light criteria showed that the fluid was likely an exudative effusion. This may be due to a parapneumonic effusion from the rib fractures WBC is normal at 10.3. Patient is also on room air. on IV levofloxacin 2D echo showed EF of 60% with stage I diastolic dysfunction and pulmonary artery systolic pressure of 54 mmHg. consult pulmonology. Ascitic fluid growing Staph aureus, sensitivities pending. Continue levofloxacin for now. Blood cultures negative so far. #Left rib fractures: He sustained a mechanical fall and had rib fractures of the left 7th, 8th and 9th ribs. These are present on the CT and unchanged from prior imaging. Will monitor. Continue p.o. and IV pain medication. #Acute on chronic anemia: Hemoglobin is 7.8 today. Thoracentesis also did not reveal any bloody fluid. Will monitor and transfuse if hemoglobin is less than 7. #Debility due to frequent falls: PT OT on board. Fall precautions. #Benign essential hypertension: On losartan #History of lymphoma: stable #Depression: On escitalopram #History of BPH: On Flomax DVT prophylaxis: SCDs Disposition: [facility]. Medications at Discharge Home Medications acetaminophen 325 mg capsule 975 mg PO Q6H PRN fever or pain 07/06/24 escitalopram oxalate 20 mg tablet 20 mg PO DAILY 07/06/24 fexofenadine 60 mg tablet 60 mg PO DAILY 07/06/24 losartan 50 mg tablet 50 mg PO DAILY 07/06/24 oxycodone 5 mg tablet 5 mg PO DAILY 07/06/24 tamsulosin 0.4 mg capsule 0.4 mg PO QHS 07/06/24 vancomycin 125 mg capsule 125 mg PO Q6H 07/06/24 levofloxacin 750 mg tablet 750 mg PO DAILY #7 tabs 07/09/24 Hospital Course Operations None Procedures Thoracentesis Summary of Care Provided Minutes Spent on Discharge: 45 Hospital Course: Patient is a 64-year-old male with a past medical history as outlined was admitted through the ED on 07/06/2024 with a complaint of shortness of breath. His symptoms are started the day prior to admission. He was staying with his sister and says he fell. He had been feeling more short of breath and dizzy with exertion. He had had a recent history of mechanical fall with multiple left rib fractures and near syncope with resultant pneumothorax which required chest tube placement at [facility] on June 26, 2024. He developed C. difficile afterwards and was discharged on oral vancomycin. He was at home with his sister stated when he came in with the symptoms. He had leukocytosis with WBC of 15.5. Lactic acid was 2.1. He was also hypotensive with blood pressure of 72/50. CTA of the chest with and without IV contrast showed nondisplaced left 6th through 9th rib fractures with moderate-sized left pleural effusion and overlying atelectasis and no pulmonary artery filling defect to suggest embolus. He also had CT of the brain without contrast which showed no acute intracranial pathology. Urinalysis was positive but was likely due to colonization. He was admitted to be managed for shortness of breath due to left-sided pleural effusion. He had thoracentesis with removal of 580 mL of cloudy yellow fluid. Fluid analysis showed was an exudate and was thought to be likely due to a parapneumonic effusion from underlying pneumonia from possible atelectasis from the rib fractures. He had 2D echo which showed EF of 60% with stage I diastolic dysfunction and pulmonary artery systolic pressure of 54 mmHg. Patient was started on IV levofloxacin. Patient remained on room air and felt much better. Pulmonology was consulted and recommended that patient continue with 7 more days of antibiotics and to follow-up for chest imaging with his PCP after he completed the course of antibiotics to make sure that the effusion remained resolved. Patient initially wanted to go home but was deemed as needing skilled therapy. [facility] with a prescription for p.o. levofloxacin for 7 days. Also notes pleural fluid cultures grew Staph aureus. He is to follow-up with his primary care doctor within 1 to 2 weeks. Patient seen and examined prior to discharge. He had no active complaints and had an uneventful night. Review of systems otherwise negative. Labs and vitals reviewed. Home medication reviewed and reconciled. Physical Exam Const alert, oriented x3, no apparent distress, average body habitus and well nourished General Appearance: cooperative, comfortable and well developed Orientation / Consciousness: awake HEENT normocephalic, head/scalp atraumatic, hearing grossly normal bilaterally, moist oral mucous membranes and oropharynx normal Mouth: oral and palatal mucosa normal Eyes PERRL and EOMs intact bilaterally Neck no lymphadenopathy and supple Lymph Lymphatic: no lymphadenopathy noted and no lymphedema noted Resp Resp Narrative: Mildly diminished breath sounds bibasilarly. No wheezes or crackles. On room air. Cardio regular rate, regular rhythm, S1 normal heart sound, S2 normal heart sound and no murmurs GI normal to inspection, nondistended, normoactive bowel sounds, soft to palpation, non-tender and non-distended Extremity normal to inspection, full ROM, normal capillary refill, no clubbing, cyanosis or edema and no calf tenderness General Extremity: no tenderness to palpation of joints or extremities Skin no rashes or lesions noted General Skin Exam: no breakdown Neuro oriented x3, CN's II-XII intact bilaterally, moves all extremities, no focal motor deficits and no sensory deficits noted Sensorium / Orientation: awake, alert, oriented to person, oriented to place and oriented to time Speech: speech normal Motor Exam: strength 5/5 throughout and general weakness Psych thought process normal, cooperative and affect normal Appearance: appropriate Weight / BMI Weight Weight: 182 lb 8.684 oz Body Mass Index (BMI) 24.0 ABG / Lab / Microbiology Data 07/09/24 05:42 07/09/24 05:42 Laboratory: Laboratory Results - last 24 hr 07/07/24 : Fluid Source THORACENTESIS, Fluid Color YELLOW, Fluid Appearance CLEAR, Fluid WBC 0.596, Fluid RBC 1166, Fluid Tot Cell Count 0.596, Fluid Neutrophils 65, Fluid Lymphocytes 21, Fluid Monocytes 13, Fluid Macrophages 1, Fl Pathologist Comment May follow, Fluid Comment 2 SEE COMMENT 07/09/24 05:42: WBC 10.3, RBC 2.35 L, Hgb 7.8 L, Hct 24.0 L, MCV 102.1 H, MCH 33.2 H, MCHC 32.5, RDW Std Deviation 51.1 H, RDW Coeff of Narciso 14.0, Plt Count 674 H, MPV 9.7, Immature Gran % (Auto) 0.700, Neut % (Auto) 65.0, Lymph % (Auto) 15.9 L, Patrick % (Auto) 11.6 H, Eos % (Auto) 5.8 H, Baso % (Auto) 1.0, Absolute Neuts (auto) 6.7, Absolute Lymphs (auto) 1.63, Nucleated RBC % 0, Sodium 136, Potassium 3.2 L, Chloride 102, Carbon Dioxide 21.4, Anion Gap 12, BUN 5, Creatinine 0.60 L, Estim Creat Clear Calc 142.41, Est GFR (MDRD) Non-Af 108, BUN/Creatinine Ratio 7.5 L, Glucose 107 H, Calcium 8.4 Microbiology: Microbiology 07/06/24 23:35 Blood Culture (Wb) - Other Blood Culture - Preliminary No growth in 48 hours. 07/06/24 23:35 Blood Culture (Wb) - Other Blood Culture - Preliminary No growth in 48 hours. 07/07/24 Unknown Fluid - Thoracentesis Fluid Gram Stain - Final 07/07/24 Unknown Fluid - Thoracentesis Fluid Body Fluid Culture - Preliminary Staphylococcus aureus Staphylococcus aureus#2 07/07/24 02:05 Urine, Clean Catch Legionella Antigen - Final 07/07/24 02:05 Urine, Clean Catch Streptococcus pneumoniae Antigen (M - Final D/C Instructions Discharge Diet: Low fat / Low cholesterol Discharge Activity: Return to Normal Activity Weight Bearing Status: Weight bearing as tolerated Call your doctor if you observe: Fever of 101 or Higher, Shortness of breath, Dizziness, Swelling in the ankles and Chest pain DC O2, CPAP, BIPAP Needs Home O2 Discharge instructions: No DC home with Oxygen: No Meaningful Use Info Meaningful Use Meaningful Use Diagnoses (Choose all that apply): None applicable Ischemic Stroke Statin Dosing Therapy Reference: STATIN DOSE THERAPY REFERENCE: * Patients > 75 years receive moderate or high dose statin therapy. * Patients 75 years or YOUNGER should receive HIGH intensity statin dose unless contraindicated. You will be required to document reason for non-treatment if statin daily dose does not meet guidelines. HIGH DOSE STATIN THERAPY DAILY Atorvastatin > than or = to 40 mg Rosuvastatin > than or = to 20 mg Amlodipine + Atorvastatin > than or = to 2.5/40 mg Ezetimibe + Simvastatin 10/80 mg Simvastatin 80mg Discharge Plan Admission Admit Date/Time: 07/06/24 22:51 Primary Reason for Your Visit: parapneumonic effusion Attending Provider: Mamie Mathews Primary Care Provider: YULIANA DE LA CRUZ Consulting Providers: Jonel Mckeon; Alec Marcus; Chuy Long; Marck Davis; Arturo Collado; Jonel Carvajal; Mario Arenas; Tyron Anne; Linda Mckenzie; Aly Be; Nik Peck; Efrem Jin; Ca Stark; Jayce Garg; Teena Jane; Butch Cueto; Garfield Calles; Davon Patel; Angel Fisher; Ang Frazier; Matt Tinajero; Aubrey Romero; Edmar Magallanes; Goran Lopez Instructions Patient Instructions: KATEY RN Thoracentesis Dc Discharge Orders/Prescriptions Prescriptions: New levofloxacin 750 mg tablet 750 mg PO DAILY Qty: 7 0RF Continued acetaminophen 325 mg capsule 975 mg PO Q6H PRN (Reason: fever or pain) oxycodone 5 mg tablet 5 mg PO DAILY vancomycin 125 mg capsule 125 mg PO Q6H losartan 50 mg tablet 50 mg PO DAILY fexofenadine 60 mg tablet 60 mg PO DAILY tamsulosin 0.4 mg capsule 0.4 mg PO QHS escitalopram oxalate 20 mg tablet 20 mg PO DAILY Referrals / Follow Up: YULIANA DE LA CRUZ [Other] - Within 1 Week Arturo Collado DO [Med Staff - Active Staff] - Within 2 Weeks [facility] Doctor,Out of [Non-Staff] - Disposition Disposition (needs filled in before D/C Order can be placed): [facility] Charges/Coding Visit Charges Inpatient E&M: 34818 Disch Hosp >30min
--- NOTE | 2024-07-09 14:26 | PHA.DC.MR.R ---
Pharmacy [place] Med Reconciliation Pharmacy Service has performed discharge medication reconciliation for this patient upon transfer to SNF. The patient's discharge medication list was reviewed for discrepancies and discrepancies were resolved. Medication reconciliation completed by Blas Smith PharmD Candidate Medications at Discharge Home Medications acetaminophen 325 mg capsule 975 mg PO Q6H PRN fever or pain 07/06/24 escitalopram oxalate 20 mg tablet 20 mg PO DAILY 07/06/24 fexofenadine 60 mg tablet 60 mg PO DAILY 07/06/24 losartan 50 mg tablet 50 mg PO DAILY 07/06/24 oxycodone 5 mg tablet 5 mg PO DAILY 07/06/24 tamsulosin 0.4 mg capsule 0.4 mg PO QHS 07/06/24 vancomycin 125 mg capsule 125 mg PO Q6H 07/06/24 levofloxacin 750 mg tablet 750 mg PO DAILY #7 tabs 07/09/24
--- NOTE | 2024-07-09 14:30 | CASEMGMT ---
Social Work Physician updated and pt is ready for discharge today.? PASRR form completed in [facility]. [facility] providing [facility] at 3-3:30PM. SW met with pt and they are agreeable to discharge plan as stated above.? Bedside nurse notified of discharge time. DCA notified and will complete final arrangements and notifications. Disposition:[facility], private pay, intermediate level of care JARRETT Mason
[2024-07-09] MEDS: Loperamide 2 MG Capsule PO (15:53)
[2024-07-10 14:59] LABS: Pathologist Comment/Body Fluid Reviewed
[2024-07-11 00:07] LABS: Albumin, Body Fluid 2.7 g/dL (Not Estab.); Amylase Body Fluid 26 U/L (.); pH, Body Fluid 11254 7.5 (Not Estab.)
== END 2024-07-09 16:04 | disposition skilled nursing facility (03) | DRG 872 ==
LOC: ED 19:52 → MS3 23:47
PROVIDERS: Admitting Provider Internal Medicine; Emergency Provider Emergency Medicine; Referring Provider Internal Medicine; Visit Provider Student in an Organized Health Care Education/Training Program
DX: A41.9 Sepsis, unspecified organism (principal); J90 Pleural effusion, not elsewhere classified; E87.20 Acidosis, unspecified; A04.72 Enterocolitis due to Clostridium difficile, not specified as recurrent; J98.11 Atelectasis; K76.0 Fatty (change of) liver, not elsewhere classified; I10 Essential (primary) hypertension; F10.10 Alcohol abuse, uncomplicated; F32.A Depression, unspecified; J30.2 Other seasonal allergic rhinitis; I95.9 Hypotension, unspecified; W19.XXXD Unspecified fall, subsequent encounter; F17.210 Nicotine dependence, cigarettes, uncomplicated; R74.01 Elevation of levels of liver transaminase levels; R55 Syncope and collapse; Z79.891 Long term (current) use of opiate analgesic; S22.42XD Multiple fractures of ribs, left side, subsequent encounter for fracture with routine healing; R53.81 Other malaise; Z79.899 Other long term (current) drug therapy; Z79.1 Long term (current) use of non-steroidal anti-inflammatories (NSAID); Z79.02 Long term (current) use of antithrombotics/antiplatelets; Y90.0 Blood alcohol level of less than 20 mg/100 ml; N40.0 Benign prostatic hyperplasia without lower urinary tract symptoms; Z85.72 Personal history of non-Hodgkin lymphomas
CPT/HCPCS: 32555; 36415; 70450; 71045; 71046; 71275; 74176; 80048; 80053; 80061; 80074; 80307; 81001; 82040; 82042; 82077; 82150; 82607; 82746; 82945; 83036; 83605; 83615; 83735; 83880; 83986; 84100; 84157; 84443; 84484; 85025; 85610; 86850; 86900; 86901; 87040; 87070; 87075; 87077; 87186; 87205; 87449; 88108; 88305; 88313; 89050; 93005; 93306; 97110; 97116; 97162; 97166; 97530; 99285; Q9967; A4216